=== PATIENT | male | born 1970 | race Caucasian/White ===

== ENCOUNTER 2020-02-03 20:06 | Inpatient (IN) | payer MEDICAID, SELFPAY ==
[2020-02-03 20:09] VITALS: BP 165/126; PULSE 116; RESP 22; TEMP 37.3; O2SAT 96; BMI 22.8
--- NOTE | 2020-02-03 20:52 | EKG12_ITS ---
Test Reason : SEIZURE Blood Pressure : / mmHG Vent. Rate : 107 BPM Atrial Rate : 107 BPM P-R Int : 180 ms QRS Dur : 102 ms QT Int : 344 ms P-R-T Axes : 029 058 057 degrees QTc Int : 459 ms Sinus tachycardia Nonspecific ST abnormality Abnormal ECG Confirmed by KIRSTEN MCGOVERN, CECE ([id number]), book or script editor SHERI MYERS ([id number]) on 02/05/2020 1:04:23 PM Referred By: OLVIN Confirmed By:CECE CURTIS MD
--- NOTE | 2020-02-03 20:52 | CT_ITS ---
STUDY: CT BRAIN WITHOUT CONTRAST REASON FOR EXAM: Male, 49 years old. CHANGE IN MENTAL STATUS. Hx of seizures, HTN and alcohol abuse RADIATION DOSAGE (If Supplied By Facility): CTDIvol = ( 44.99 ) mGy, DLP = ( 846.73 ) mGycm TECHNIQUE: Transaxial CT imaging of the brain was performed without administration of intravenous contrast material. Individualized dose optimization techniques were used for this CT. COMPARISON: No relevant priors. FINDINGS: Normal soft tissue structures. Normal calvarium. Normal size ventricles and extra-axial spaces for the patient''s age. Normal white matter tracts of the cerebral hemispheres. Normal basal ganglia and thalami. Normal brainstem. Normal cerebellum. There is no intracranial hemorrhage. There are no findings of an acute ischemic infarction. Normal visualized paranasal sinuses. CT/Brain/Head without Contrast IMPRESSION: Normal unenhanced CT scan of the brain. Electronically Signed: Shruti Pozo MD at 21:33 EDT Tel , Service support ,
[2020-02-03 21:04] LABS: Absolute Lymphocyte Count 1.22 X10^3/uL (0.83-4.51); Absolute Neutrophil Count 4.1 X10^3/uL (2.0-7.7); Basophil# 0.04 X10^3/uL; Basophil% 0.7 % (0-1); Eosinophil# 0.03 X10^3/uL; Eosinophils% 0.5 % (0-5); Hematocrit 47.3 % (40-54); Hemoglobin 16.1 g/dL (13.0-16.5); Lymphocyte # 1.22 X10^3/ul (4.0); Lymphocyte % 19.9 % (19-41); Mean Corpuscular Hgb 32.5 pg (27.0-32.0); Mean Corpuscular Volume 95.6 fL (80-94); Mean Platelet Vol. 10.4 fl (6.2-12.0); Monocyte# 0.67 X10^3/uL; Monocyte% 10.9 % (0-10); NRBC Flagged by Analyzer 0 % (0-5); Neutrophil # 4.13 X10^3/uL (2.7-7.7); Neutrophil % 67.3 % (47-70); POSITIVE COUNT YES; Platelet Count 90 K/mm3 (150-450); RBC Distribution Width SD 42.2 fl (35.1-43.9); Red Blood Count 4.95 M/mm3 (4.6-6.2); White Blood Count 6.1 K/mm3 (4.4-11.0)
[2020-02-03 21:09] LABS: Differential Indicated SCAN CRITERIA MET
[2020-02-03 21:16] LABS: Alcohol, Blood (Medical)-Serum < 3.0 mg/dL
--- NOTE | 2020-02-03 21:20 | RAD_ITS ---
STUDY: X-RAY CHEST REASON FOR EXAM: Male, 49 years old. HX OF SEIZURES, HTN, ALCOHOLIC. TECHNIQUE: Single AP portable view of the chest. COMPARISON: None. FINDINGS: The lungs are clear and expanded. There is no demonstrated pleural abnormality. Normal size heart. Normal mediastinum and nicolette. Normal visualized pulmonary arteries. Normal visualized aortic arch and descending thoracic aorta. Normal visualized thoracic spine. Normal visualized ribs, clavicles, and shoulders. There is no demonstrated abnormality of the visualized soft tissue structures of the upper abdomen. RAD/Chest 1 View (Portable) IMPRESSION: Normal x-ray examination of the chest. Electronically Signed: Shruti Pozo MD at 22:01 EDT Tel , Service support ,
[2020-02-03 21:22] LABS: ALB/GLOB Ratio 1.2 RATIO (0.9-2.4); AST(SGOT) 146 U/L (15-37); Alanine Aminotransfer ALT/SGPT 88 U/L (16-61); Alkaline Phosphatase 112 U/L (45-117); Anion Gap 20 (5-15); BUN 4 mg/dL (7-18); BUN/Creat Ratio 3.8 RATIO (10-20); Calcium,Total 9.6 mg/dL (8.5-10.1); Chloride 100 mmol/L (98-107); Creatinine, Serum 1.06 mg/dL (0.70-1.30); EST Glomerular Filtration Rate 79 mL/min (>60); Est Glom Filt Rate - Afr Amer 96 mL/min (>60); Estimated Creatinine Clearance 80.55 ml/min; Globulin 4.3 g/dL (2.2-4.2); Glucose 152 mg/dL (74-106); Potassium 3.2 mmol/L (3.5-5.1); Protein, Total 9.3 g/dL (6.4-8.2); Sodium Level 135 mmol/L (136-145)
[2020-02-03 21:46] LABS: Platelet Estimate MOD DEC (ADEQ); Red Cell Morphology NORM C+C NORMAL (NORM C&C)
[2020-02-03 21:59] VITALS: BP 154/107; PULSE 105; RESP 15; O2SAT 95
--- NOTE | 2020-02-03 23:24 | ED.DCSUM_ITS ---
- ER Visit Summary Date of Service: 02/03/20 Chief Complaint: Seizure History of Present Illness: The patient is a 49 M who had a brief loss of consciousness at work. He was shaking. He was feeling dizzy and had blurry vision prior to the event. He said this happened once before, but he was never sure what caused this. His significant other is with him and does remark that he stopped drinking alcohol 2 days ago. He was drinking a liter per day. No other drug use. No other complaints or injuries. Physical Examination: Afebrile and vital signs unremarkable except for hypertension and a heart rate of 105. Head and neck atraumatic. Heart regular. Lungs clear. Abdomen soft. Skin appears normal. Test Results: EKG shows sinus rhythm at a rate of [address] changes. Platelets 90, sodium 135, potassium 3.2, CO2 15, anion gap 20, glucose 152, BUN 4, total bilirubin 3.5, ALT 88, AST 146, troponin normal. CT brain and chest x-ray unremarkable. Emergency Department Course and Treatment: Patient had seizure precautions. Will treat with Ativan. He was placed on a monitor. I suspect his loss of consciousness may be from a withdrawal seizure. Work-up as above. He is interested in detox from alcohol and so I contacted the hospitalist for admission. Treatment Plan: As above Disposition: Admission Impression: Loss of consciousness, alcohol abuse, thrombocytopenia, hypokalemia, hyperbilirubinemia, transaminitis This note was generated with [employer] dictation software. It may contain incorrect words, spelling, and punctuation that were not noted in review of the chart prior to signing ED Disposition - Plan for ED Patient: Referrals: Care Physician,No Primary [Primary Care Provider] -
[2020-02-03 23:27] LABS: Amphetamine Urine VISTA NEGATIVE (<1000 ng/mL); Barbiturate Urine VISTA NEGATIVE (< 200 ng/mL); Benzodiazepine Urine VISTA NEGATIVE (< 200 ng/mL); Cocaine Urine VISTA NEGATIVE (< 300 ng/mL); Ecstacy Urine VISTA NEGATIVE (< 500 ng/mL); Methadone Urine VISTA NEGATIVE (< 300 ng/mL); PCP Urine VISTA NEGATIVE (< 25 ng/mL); THC Urine VISTA NEGATIVE (< 50 ng/mL); Vista UDS pH Range 5
--- NOTE | 2020-02-03 23:33 | PCM.HP.STD ---
Problem List (1) Alcohol withdrawal Status: Acute History of Present Illness Date of Admission: 02/03/20 Chief Complaint: alcohol withdrawal The patient is a 49 year old male patient with a history of chronic alcohol abuse presents to the emergency room by squad after experiencing a seizure while shopping at a local store. The seizure was witnessed and was described as tonic-clonic lasting 30 to 45 seconds. He was monitored during the seizure by bystanders and was uninjured from the experience. The patient admits to stopping drinking 2 days ago and admits to chronic heavy alcohol abuse. AST to ALT ratio is nearly 2-1 and bilirubin is markedly elevated 3.5 otherwise labs are unremarkable. Patient denies any abdominal pain, nausea and/or vomiting. He also denies chest pain or shortness of breath and/or fevers or chills. Patient is requesting admission for detoxification of alcohol and a plan for success upon discharge from the hospital as he had tried this once before and was unsuccessful due to lack of post hospital plan. Past Medical History Allergies No Known Allergies Allergy (Verified 02/03/20 20:15) Home Medications: Ambulatory Orders Medication Instructions Recorded NK 02/03/20 Smoking Status: Never smoker - *Family History Maternal History Items: No pertinent history Review of Systems Constitutional: Denies: Chills, Fever, Weight Change HEENT: Denies: Head Aches, Sinus Congestion, Sinus Drainage Cardiovascular: Denies: Chest Pain, Palpitations Respiratory: Denies: Cough, Shortness of breath at rest, Sputum production Gastrointestinal: Denies: Abdominal Pain, Nausea, Vomiting Genitourinary: Denies: Dysuria Musculoskeletal: Denies: Joint Pain, Joint Tenderness Skin: Denies: Rash, Wounds Neurological: Reports: Seizures. Denies: Focal weakness, Numbness, Tingling Psychiatric: Reports: Anxiety. Denies: Depression, Homicidal Ideations, Suicidal Ideations Hematologic/ Lymphatic: Denies: Easy Bruising, Easy Bleeding VTE Information - Inpt Only VTE Present on Admission: No VTE Mechan Device Prophylaxis: None VTE Pharm Prophylaxis ordered?: No Patient Problems: Active and Suspected Problems Alcohol withdrawal (Acute) - Physical Exam Vitals/I&O's: Vital Signs Temp Pulse Resp BP Pulse Ox 99.2 F H 105 H 15 154/107 H 95 02/03/20 20:09 02/03/20 21:59 02/03/20 21:59 02/03/20 21:59 02/03/20 21:59 Oxygen Delivery Method Room Air Weight: 145 lb 11.609 oz Body Mass Index (BMI) 22.8 General: Alert, Oriented x3, Cooperative HEENT: Atraumatic, PERRLA, EOMI, Normocephalic Neck: Supple Lungs: Clear to auscultation, Normal air movement, No rhonchi, No wheeze, No rales Cardiovascular: Regular rate, Normal S1, Normal S2, No murmurs Abdomen: Bowel Sounds Present, Soft, Non Tender Extremities: No edema Skin: No rashes, No breakdown Musculoskeletal: No Tenderness to Palpation of Joints or Extremities Neurological: Neuro grossly intact Psych/Mental Status: Normal Affect, Appropriate Laboratory Results 02/03/20 20:18: WBC 6.1, RBC 4.95, Hgb 16.1, Hct 47.3, MCV 95.6 H, MCH 32.5 H, MCHC 34.0, RDW Std Deviation 42.2, RDW Coeff of Jag 12.0, Plt Count 90 L, MPV 10.4, Immature Gran % (Auto) 0.700, Neut % (Auto) 67.3, Lymph % (Auto) 19.9, [place] % (Auto) 10.9 H, Eos % (Auto) 0.5, Baso % (Auto) 0.7, Absolute Neuts (auto) 4.1, Absolute Lymphs (auto) 1.22, Nucleated RBC % 0, Platelet Estimate MOD DEC, RBC Morphology NORM C+C 02/03/20 20:18: Sodium 135 L, Potassium 3.2 L, Chloride 100, Carbon Dioxide 15.0 L, Anion Gap 20 H, BUN 4 L, Creatinine 1.06, Estim Creat Clear Calc 80.55, Est GFR (MDRD) Af Amer 96, Est GFR (MDRD) Non-Af 79, BUN/Creatinine Ratio 3.8 L, Glucose 152 H, Calcium 9.6, Total Bilirubin 3.50 H, AST 146 H, ALT 88 H, Alkaline Phosphatase 112, Troponin I < 0.015, Total Protein 9.3 H, Albumin 5.0, Globulin 4.3 H, Albumin/Globulin Ratio 1.2 02/03/20 20:18: Ethyl Alcohol < 3.0 02/03/20 22:25: Urine Opiates Screen NEGATIVE, Urine Methadone Screen NEGATIVE, Ur Barbiturates Screen NEGATIVE, Ur Phencyclidine Scrn NEGATIVE, Ur Amphetamines Screen NEGATIVE, U Methamphetamin-MDMA NEGATIVE, U Benzodiazepines Scrn NEGATIVE, Urine Cocaine Screen NEGATIVE, U Cannabinoids Screen NEGATIVE, Ur Drug Screen Comment Assessment/Plan All Active Problems Alcohol withdrawal (Acute) Plan 1. Alcohol abuse/withdrawal?Place patient on general medical floor initiate CIWA protocol, consult assistant case manager for discharge planning to [facility] and other alcohol addiction support services. 2. DVT prophylaxis?patient is ambulatory but will be using seizure precautions over the next 24 hours Inpatient E&M: 68806 Init Hosp L3
[2020-02-03 23:35] VITALS: BP 169/109; PULSE 109; RESP 18; TEMP 37.8; O2SAT 95
[2020-02-03] MEDS: LORazepam 2 MG/ML Syringe 1 MG IV (23:40)
[2020-02-04] VITALS (7 sets, daily range): BP systolic 151–170; BP diastolic 91–118; PULSE 86–111; RESP 16–18; TEMP 37.1–38.3; O2SAT 97–100; BMI 23.3; BMI 23.4
[2020-02-04 07:22] LABS: AST(SGOT) 103 U/L (15-37); Alanine Aminotransfer ALT/SGPT 73 U/L (16-61); Albumin, Serum 4.2 g/dL (3.2-5.0); Alkaline Phosphatase 96 U/L (45-117); Anion Gap 10 (5-15); BUN 4 mg/dL (7-18); BUN/Creat Ratio 6.6 RATIO (10-20); Calcium,Total 9.1 mg/dL (8.5-10.1); Chloride 97 mmol/L (98-107); EST Glomerular Filtration Rate 152 mL/min (>60); Est Glom Filt Rate - Afr Amer 184 mL/min (>60); Globulin 4.2 g/dL (2.2-4.2); Glucose 105 mg/dL (74-106); Potassium 3.3 mmol/L (3.5-5.1); Protein, Total 8.4 g/dL (6.4-8.2); Sodium Level 131 mmol/L (136-145)
--- NOTE | 2020-02-04 07:41 | PN_ITS ---
Patient Problems: Active and Suspected Problems Alcohol withdrawal (Acute) Reason for Visit: Seizure, acute alcohol withdrawal Subjective: Patient is a 49-year-old gentleman with history of chronic alcohol use who had apparently stopped drinking 2 days prior to admission had a seizure was at work. Patient was brought to the emergency department admitted to regular nursing floor for further management Objective: GENERAL: cooperative HEENT: Atraumatic; EYES; Anicteric, Normal Conjunctiva NECK; supple, normal thyroid, RESPIRATORY: Diminished to auscultation CARDIOVASCULAR: Regular S1 S2, GI: soft, normoactive bowel sounds, : No Renal angle tenderness; EXTREMITIES: No edema, no clubbing, MUSCULOSKELETAL: no muscle waisting NEURO: Awake; no lateralizing signs. SKIN: No Rash PSYCH; Flat affect Vitals/I&O's: Vital Signs Temp Pulse Resp BP Pulse Ox 99.1 F 96 16 155/91 H 97 02/04/20 04:47 02/04/20 04:47 02/04/20 04:47 02/04/20 04:47 02/04/20 04:47 Oxygen Delivery Method Room Air Weight: 67.7 kg Body Mass Index (BMI) 23.3 Laboratory Results 02/03/20 20:18: WBC 6.1, RBC 4.95, Hgb 16.1, Hct 47.3, MCV 95.6 H, MCH 32.5 H, MCHC 34.0, RDW Std Deviation 42.2, RDW Coeff of Jag 12.0, Plt Count 90 L, MPV 10.4, Immature Gran % (Auto) 0.700, Neut % (Auto) 67.3, Lymph % (Auto) 19.9, [place] % (Auto) 10.9 H, Eos % (Auto) 0.5, Baso % (Auto) 0.7, Absolute Neuts (auto) 4.1, Absolute Lymphs (auto) 1.22, Nucleated RBC % 0, Platelet Estimate MOD DEC, RBC Morphology NORM C+C 02/03/20 20:18: Sodium 135 L, Potassium 3.2 L, Chloride 100, Carbon Dioxide 15.0 L, Anion Gap 20 H, BUN 4 L, Creatinine 1.06, Estim Creat Clear Calc 80.55, Est GFR (MDRD) Af Amer 96, Est GFR (MDRD) Non-Af 79, BUN/Creatinine Ratio 3.8 L, Glucose 152 H, Calcium 9.6, Total Bilirubin 3.50 H, AST 146 H, ALT 88 H, Alkaline Phosphatase 112, Troponin I < 0.015, Total Protein 9.3 H, Albumin 5.0, Globulin 4.3 H, Albumin/Globulin Ratio 1.2 02/03/20 20:18: Ethyl Alcohol < 3.0 02/03/20 22:25: Urine Opiates Screen NEGATIVE, Urine Methadone Screen NEGATIVE, Ur Barbiturates Screen NEGATIVE, Ur Phencyclidine Scrn NEGATIVE, Ur Amphetamines Screen NEGATIVE, U Methamphetamin-MDMA NEGATIVE, U Benzodiazepines Scrn NEGATIVE, Urine Cocaine Screen NEGATIVE, U Cannabinoids Screen NEGATIVE, Ur Drug Screen Comment 02/04/20 06:36: Sodium 131 L, Potassium 3.3 L, Chloride 97 L, Carbon Dioxide 24.0, Anion Gap 10, BUN 4 L, Creatinine 0.60 L, Estim Creat Clear Calc 142.30, Est GFR (MDRD) Af Amer 184, Est GFR (MDRD) Non-Af 152, BUN/Creatinine Ratio 6.6 L, Glucose 105, Calcium 9.1, Total Bilirubin 3.80 H, AST 103 H, ALT 73 H, Alkaline Phosphatase 96, Total Protein 8.4 H, Albumin 4.2, Globulin 4.2, Albumin/Globulin Ratio 1.0 Current Medications Dicyclomine HCl (Bentyl) 20 mg PO Q6H PRN PRN PRN Reason: abdominal discomfort Folic Acid (Folic Acid) 1 mg PO DAILY@0800 JÚNIOR Gabapentin (Neurontin) 300 mg PO Q8H PRN PRN PRN Reason: moderate to severe anxiety Hydroxyzine Pamoate (Vistaril Pamoate Capsule) 50 mg PO Q4H PRN PRN PRN Reason: mild anxiety Loperamide HCl (Imodium) 2 mg PO Q4H PRN PRN PRN Reason: LOOSE STOOLS Lorazepam (Ativan) 2 mg PO Q2H PRN PRN; Protocol PRN Reason: CIWA score > 8 but <15 Lorazepam (Ativan) 2 mg PO UD PRN; Protocol PRN Reason: CIWA score >/=15. Lorazepam (Ativan) 2 mg IV Q2H PRN PRN; Protocol PRN Reason: CIWA score > 8 but <15 Lorazepam (Ativan) 2 mg IV UD PRN; Protocol PRN Reason: CIWA score >/=15. Ondansetron HCl (Zofran) 8 mg PO Q8H PRN PRN PRN Reason: NAUSEA Sodium Chloride () 10 - 40 ml IV UD PRN PRN Reason: SALINE FLUSH Thiamine HCl (Vitamin B1) 100 mg PO DAILYCM JÚNIOR Trazodone HCl (Desyrel) 100 mg PO QHS PRN PRN Reason: INSOMNIA STROKE Vital Signs/Narrative: Vital Signs Temp Pulse Resp BP Pulse Ox 02/04/20 04:47 99.1 F 96 16 155/91 H 97 Medical Necessity - Tobacco Use Smoking Status: Never smoker Assessment/Plan All Active Problems Alcohol withdrawal (Acute) Patient is a 49-year-old gentleman with history of chronic alcohol use who had apparently stopped drinking 2 days prior to admission had a seizure was at work. Patient was brought to the emergency department admitted to regular nursing floor for further management 1. Acute alcohol withdrawal ?Patient has been admitted to regular nursing floor for medical stabilization using phenobarb patient was counseled on cessation 2. New onset seizure ?Suspected to be secondary to alcohol withdrawal seizure patient has been admitted to a nursing floor as stated above. Seizure precautions instituted in addition ordered EEG MRI of the brain with contrast and consultation placed to SOC for EEG interpretation 3. Hypokalemia ?Corrected per protocol 4. Hyponatremia ?Secondary to beer put to kin monitoring daily electrolyte 5. Acute alcoholic hepatitis ?Monitoring LFTs 6. DVT prophylaxis ?Did encourage early ambulation Inpatient E&M: [id number] [facility] Hosp L3
[2020-02-04] MEDS: Thiamine Hydrochloride 100 MG Tablet PO (09:00)
[2020-02-04] MEDS: Folic Acid 1 MG Tablet PO (09:00)
--- NOTE | 2020-02-04 09:02 | CASEMGMT ---
Social Work Note Pt is RAMP pt. SW placed a call to Sujatha at [facility] and left message that pt will need to be seen. Tania Smalls TRANSPORTATION AIDE, MED PEDS
--- NOTE | 2020-02-04 11:09 | TELEMED_ITS ---
SOC Telemed has confirmed receipt of a request for visit. This document confirms receipt of the order initiating the consult. To find the results of the consultation, please view the patient's reports for the scanned Telemed Consult.
--- NOTE | 2020-02-04 13:53 | CASEMGMT ---
Social Work Note Pt is listed as self-pay. WILFRID spoke with Tania in [facility]. WILFRID updated Tania that pt is RAMP pt, doesn't have access to phone while at [facility]. Tania states she will mail pt resources. SW in to speak with pt regarding self-pay. Pt confirms he doesn't have insurance. Pt states his girlfriend was provided financial resources in the ED. Pt agreeable to taking additional resources. WILFRID provided pt with Medicaid application, [facility] number, [facility] clinic information, [employer], [facility], and RX assistance program including prescription hope resources. Pt receptive to taking resources. Pt denied additional needs or concerns at this time. Tania Smalls DENTAL PROFESSIONAL, CLERICAL OFFICE
--- NOTE | 2020-02-04 14:00 | MRI_ITS ---
STUDY: MRI BRAIN WITH AND WITHOUT CONTRAST REASON FOR EXAM: Male, 49 years old. seizures, alcohol withdrawal TECHNIQUE: Standardized multiplanar fat and water weighted pulse sequences were obtained. IV Dotarem 13ml was administered for the contrast portion of the examination. COMPARISON: CT head 02/03/2020. FINDINGS: No intracranial mass, mass effect, or midline shift. No hemorrhage, territorial infarct, or acute ischemia. No enhancing mass or vascular lesion. Normal size of the ventricles and extra-axial spaces for the patient''s age. Normal white matter tracts of the supratentorial brain. Normal bilateral basal ganglia. Normal thalami. There is no extra-axial fluid accumulation. Normal flow voids within the major intracranial circulation suggesting patency by spin echo criteria. There is no enhancing intra-axial or extra-axial abnormality. Normal sella turcica, pituitary gland, infundibular stalk, optic chiasm and hypothalamus. Normal midbrain, marcel and medulla. Normal cerebellum. Normal basal cisterns. Normal bilateral temporal bones. Normal bilateral internal auditory canals. No demonstrated orbital abnormality, within the constraints of a routine brain study. Normal visualized paranasal sinuses. Normal calvarium and skull base. Normal visualized soft tissue structures. MRI/Brain W/WO Contrast IMPRESSION: Normal unenhanced and enhanced MRI of the brain. Electronically Signed: Shruti Pozo MD at 16:22 EDT Tel , Service support ,
--- NOTE | 2020-02-04 14:45 | NURSING ---
off unit to MRI
--- NOTE | 2020-02-04 15:32 | ADDICTION ---
THis process description writer attempted to meet with patient in his room. Patient was unavailable. This process description writer will attempt to meet with him tomorrow.
[2020-02-04] MEDS: cloNIDine HCl 0.1 MG Tablet 0.2 MG PO (20:32)
[2020-02-04] MEDS: Phenobarbital 32.4 MG Tablet 64.8 MG PO (20:32)
[2020-02-05] MEDS: Phenobarbital 32.4 MG Tablet 64.8 MG PO ×6 (00:28→19:56)
[2020-02-05] MEDS: hydrOXYzine PAM 25 MG Capsule 50 MG PO ×3 (00:33→19:56)
[2020-02-05] MEDS: LORazepam 1 MG Tablet 2 MG PO ×2 (00:33→18:57)
[2020-02-05 00:35] VITALS: BP 148/104; PULSE 97; RESP 16; TEMP 37; O2SAT 98
--- NOTE | 2020-02-05 00:56 | NURSING ---
pt states he is feeling anxious and saw an arm come up over his siderail, turned on lights, pt looked around bed. provided info about etoh withdrawal. gave reassurance. medicated. pt returned to bed. will monitor
[2020-02-05] MEDS: LORazepam 2 MG/ML Syringe IV ×6 (02:05→22:01)
[2020-02-05] MEDS: Gabapentin 300 MG Capsule PO (02:05)
[2020-02-05] MEDS: traZODone 100 MG Tablet PO (02:05)
[2020-02-05] MEDS: 0.9% Saline Lock 10 ML Syringe IV ×4 (02:05→18:06)
--- NOTE | 2020-02-05 02:16 | NURSING ---
pt restless/anxious pulled cords out of wall on his bed, removing bed linen and taking off his gown. speaking romanian at times reorientation to hospital given without success, returned to bed, medicated for withdrawal symptoms, snack given, bedexit on
--- NOTE | 2020-02-05 02:40 | NURSING ---
restless, talking to unseen persons, taking off gown, picking at air, talking in ukrainian, unable to reorient, redirect, had set off bedexit. moved to room 325 to be beside nursing station for pt safety. charge hand and service mechanic assisted. charge hand will notify of condition
--- NOTE | 2020-02-05 02:50 | NURSING ---
pt trying to pull footboard off bed, asked pt if he needed to use bathroom pt disoriented unable to answer, pointing at chair states give him his pants (no pants in chair) reorientation not effective, tried to stand but very unsteady when assisting back to bed hit at rn, stripper color in and assisted rn to get pt to sit down. 2 staff staying with pt for safety while charge entry getting meds for pt per dr springer
[2020-02-05] MEDS: Haloperidol Lactate 5 MG/ML Vial IM ×2 (02:54→22:49)
[2020-02-05] MEDS: proMETHazine 25 MG/ML Syringe IV ×2 (02:55→22:49)
--- NOTE | 2020-02-05 03:00 | NURSING ---
staff assisted pt back to bed after medication, bed exit on, factory worker sitting with pt for safety
--- NOTE | 2020-02-05 03:50 | NURSING ---
pt in bed with eyes closed, still reaching into air mumbling at times but not thrashing in bed or setting off bedexit will continue to monitor
--- NOTE | 2020-02-05 05:16 | NURSING ---
picking at things in air, kicking legs, medicated, bedexit and seizure pads on.
[2020-02-05] MEDS: Ibuprofen 600 MG Tablet PO (08:18)
[2020-02-05] MEDS: Folic Acid 1 MG Tablet PO (08:19)
[2020-02-05] MEDS: Thiamine Hydrochloride 100 MG Tablet PO (08:19)
[2020-02-05 08:38] VITALS: BP 148/104; PULSE 120; RESP 17; TEMP 36.4; O2SAT 95
[2020-02-05 09:04] LABS: Anion Gap 8 (5-15); BUN 7 mg/dL (7-18); BUN/Creat Ratio 11.5 RATIO (10-20); Calcium,Total 9.3 mg/dL (8.5-10.1); Chloride 100 mmol/L (98-107); Creatinine, Serum 0.61 mg/dL (0.70-1.30); EST Glomerular Filtration Rate 150 mL/min (>60); Est Glom Filt Rate - Afr Amer 182 mL/min (>60); Estimated Creatinine Clearance 139.97 ml/min; Glucose 97 mg/dL (74-106); Magnesium 2.1 mg/dL (1.6-2.6); Potassium 3.5 mmol/L (3.5-5.1); Sodium Level 133 mmol/L (136-145)
--- NOTE | 2020-02-05 11:18 | PCM.PN.HOSP ---
Patient Problems: Active and Suspected Problems Alcohol withdrawal (Acute) Subjective: Agitated last pm and was given 5 mg haldol, ativan and phenergan. he is now pretty sleepy but became agitated with exam. Vitals/I&O's: Vital Signs Temp Pulse Resp BP Pulse Ox 97.6 F L 120 H 17 148/104 H 95 02/05/20 08:38 02/05/20 08:38 02/05/20 08:38 02/05/20 08:38 02/05/20 08:38 Oxygen Delivery Method Room Air Weight: 67.7 kg Body Mass Index (BMI) 23.3 Intake and Output for Last 24 Hours 02/03/20 02/04/20 02/05/20 23:59 23:59 23:59 Intake Total 480 / 480 600 / 600 Balance 480 / 480 600 / 600 General: No apparent distress, Well developed, Well nourished, Confused, - - sleeping but pushes me away with exam HEENT: Atraumatic, PERRLA, Normocephalic, EAC Clear Neck: Supple, Trachea Midline Lungs: Clear to auscultation, Normal air movement, No rhonchi, No wheeze, No rales Cardiovascular: Regular rate, Regular Rhythm, Normal S1, Normal S2, No murmurs, No rub noted, No Gallop Abdomen: Bowel Sounds Present, Soft, Non Tender, Non-Distended Extremities: No clubbing, No cyanosis, No edema, Capillary Refill Less than 3 Seconds, Peripheral Pulses Normal Skin: No rashes, No breakdown Musculoskeletal: No Tenderness to Palpation of Joints or Extremities, No Muscle Wasting Psych/Mental Status: - - sleeping and arouses but not interactive Laboratory Results 02/05/20 08:35: Sodium 133 L, Potassium 3.5, Chloride 100, Carbon Dioxide 25.0, Anion Gap 8, BUN 7, Creatinine 0.61 L, Estim Creat Clear Calc 139.97, Est GFR (MDRD) Af Amer 182, Est GFR (MDRD) Non-Af 150, BUN/Creatinine Ratio 11.5, Glucose 97, Calcium 9.3, Magnesium 2.1 Current Medications Acetaminophen (Tylenol) 500 mg PO Q4H PRN PRN PRN Reason: Temp > 100.4 F Al Hydroxide/Mg Hydroxide (Mylanta Ii) 30 ml PO Q6H PRN PRN PRN Reason: dyspesia Bisacodyl (Dulcolax) 10 mg RECTAL DAILY PRN PRN Reason: Constipation Clonidine (Catapres) 0.2 mg PO BID [facility] Last Admin: 02/04/20 20:32 Dose: 0.2 mg Documented by: Dicyclomine HCl (Bentyl) 20 mg PO Q6H PRN PRN PRN Reason: abdominal discomfort Folic Acid (Folic Acid) 1 mg PO DAILY@0800 [facility] Last Admin: 02/05/20 08:19 Dose: 1 mg Documented by: Gabapentin (Neurontin) 300 mg PO Q8H PRN PRN PRN Reason: moderate to severe anxiety Last Admin: 02/05/20 02:05 Dose: 300 mg Documented by: Hydroxyzine Pamoate (Vistaril Pamoate Capsule) 50 mg PO Q4H PRN PRN PRN Reason: mild anxiety Last Admin: 02/05/20 06:57 Dose: 50 mg Documented by: Ibuprofen (Motrin) 600 mg PO Q8H PRN PRN PRN Reason: Pain Score 1-10/10 Last Admin: 02/05/20 08:18 Dose: 600 mg Documented by: Loperamide HCl (Imodium) 2 mg PO Q4H PRN PRN PRN Reason: LOOSE STOOLS Lorazepam (Ativan) 2 mg PO Q2H PRN PRN; Protocol PRN Reason: CIWA score > 8 but <15 Last Admin: 02/05/20 00:33 Dose: 2 mg Documented by: Lorazepam (Ativan) 2 mg PO UD PRN; Protocol PRN Reason: CIWA score >/=15. Lorazepam (Ativan) 2 mg IV Q2H PRN PRN; Protocol PRN Reason: CIWA score > 8 but <15 Lorazepam (Ativan) 2 mg IV UD PRN; Protocol PRN Reason: CIWA score >/=15. Last Admin: 02/05/20 06:57 Dose: 2 mg Documented by: Nicotine (Nicoderm Cq (Pbkc)) 21 mg TRANSDERM. DAILY [facility] Ondansetron HCl (Zofran) 8 mg PO Q8H PRN PRN PRN Reason: NAUSEA Phenobarbital (Phenobarbital) 97.2 mg PO Q4H [facility]; Taper Stop: 02/09/20 03:59 Last Admin: 02/05/20 08:19 Dose: 97.2 mg Documented by: Potassium Chloride (K-Dur) 40 meq PO DAILYCM JÚNIOR Stop: 02/07/20 08:01 Last Admin: 02/05/20 08:19 Dose: 40 meq Documented by: Senna (Senokot) 2 tablet PO QHS PRN PRN Reason: Constipation Sodium Chloride () 10 - 40 ml IV UD PRN PRN Reason: SALINE FLUSH Last Admin: 02/05/20 06:57 Dose: 10 ml Documented by: Thiamine HCl (Vitamin B1) 100 mg PO DAILYCM JÚNIOR Last Admin: 02/05/20 08:19 Dose: 100 mg Documented by: Trazodone HCl (Desyrel) 100 mg PO QHS PRN PRN Reason: INSOMNIA Last Admin: 02/05/20 02:05 Dose: 100 mg Documented by: STROKE Vital Signs/Narrative: Vital Signs Temp Pulse Resp BP Pulse Ox 02/05/20 08:38 97.6 F L 120 H 17 148/104 H 95 Medical Necessity - Tobacco Use Smoking Status: Never smoker Assessment/Plan All Active Problems Alcohol withdrawal (Acute) Acute EtOH Withdrawal -phenobarb order set started last night -thiamine and folate -180 to see today for overall plan -would use Precedex if continues to be an paris New Onset Seizure -suspect EtOH withdrawal -EEG neg -MRI WNL -continue seizure precautions and monitor -if recurrent seizure will need 24 hr EEG Hypokalemia -resolved -Mg is WNL Hyponatremia -improving -will trending -repeat in am Metabolic Encephalopathy -got 5 mg of Haldol last pm -IV Phenergan -IV ativan HTN -will add Metoprolol 25 mg BID Acute EtOH Hepatitis -were trending down -repeat in am Thrombocytopenia -90,000 on last CBC -repeat in am -suspect 2/2 marrow toxicity 2/2 EtOH DVT Prophylaxis -low risk -ambulation Code status -Full Inpatient E&M: 51048 Subs Hosp L2
--- NOTE | 2020-02-05 12:24 | ADDICTION ---
This typewriter mechanic attempted to meet with patient in his room. Patient did not rouse to verbal queuing. This typewriter mechanic spoke to patient's nurse and aide who reported that he has not been alert and/or oritnerd today. Nurse noted that he was given Haldol last night which is likely why he is not easily roused. This typewriter mechanic has been unable to provide assessment or d/c planning to this patient.
[2020-02-05] MEDS: cloNIDine HCl 0.1 MG Tablet 0.2 MG PO (12:54)
[2020-02-05 13:01] VITALS: BP 146/100; PULSE 99; RESP 19; O2SAT 97
[2020-02-05 19:50] VITALS: BP 125/90; PULSE 110; RESP 20; TEMP 37.2; O2SAT 97
--- NOTE | 2020-02-05 22:25 | NURSING ---
RN went into patient room to obtained vital signs. When he the patient was awakened immediately started to take off gown. After multiple attempts to re-orient patient he continued to try to get out of bed. During this time he attempted to hit staff and tear out his IV. He continues to get out of bed despite being medicated. Staff continues to attempt to re-orient patient but keeps referring to [employer] War [employer].
[2020-02-06] VITALS (7 sets, daily range): BP systolic 109–137; BP diastolic 77–100; PULSE 101–146; RESP 16–20; TEMP 36.4–37.4; O2SAT 96–98
[2020-02-06] MEDS: Phenobarbital 32.4 MG Tablet 64.8 MG PO ×2 (04:56→20:40)
[2020-02-06] MEDS: Metoprolol Tartrate 25 MG Tablet PO ×2 (05:04→20:39)
[2020-02-06] MEDS: cloNIDine HCl 0.1 MG Tablet 0.2 MG PO (05:10)
[2020-02-06 06:34] LABS: Absolute Lymphocyte Count 0.71 X10^3/uL (0.83-4.51); Absolute Neutrophil Count 7.3 X10^3/uL (2.0-7.7); Basophil# 0.02 X10^3/uL; Basophil% 0.2 % (0-1); Eosinophil# 0.09 X10^3/uL; Hematocrit 45.9 % (40-54); Hemoglobin 16.1 g/dL (13.0-16.5); Lymphocyte # 0.71 X10^3/ul (4.0); Lymphocyte % 7.9 % (19-41); Mean Corp Hgb Conc 35.1 g/dL (32-36); Mean Corpuscular Hgb 32.5 pg (27.0-32.0); Mean Corpuscular Volume 92.5 fL (80-94); Mean Platelet Vol. 10.3 fl (6.2-12.0); Monocyte# 0.85 X10^3/uL; Monocyte% 9.5 % (0-10); NRBC Flagged by Analyzer 0 % (0-5); Neutrophil # 7.28 X10^3/uL (2.7-7.7); POSITIVE COUNT YES; Platelet Count 79 K/mm3 (150-450); RBC Distribution Width CV 11.9 % (11.6-14.6); RBC Distribution Width SD 40.1 fl (35.1-43.9); Red Blood Count 4.96 M/mm3 (4.6-6.2)
[2020-02-06 06:40] LABS: Differential Indicated SCAN CRITERIA MET
[2020-02-06] MEDS: LORazepam 2 MG/ML Syringe IV (06:52)
[2020-02-06 07:04] LABS: ALB/GLOB Ratio 1.1 RATIO (0.9-2.4); AST(SGOT) 87 U/L (15-37); Alanine Aminotransfer ALT/SGPT 61 U/L (16-61); Albumin, Serum 3.9 g/dL (3.2-5.0); Alkaline Phosphatase 91 U/L (45-117); Anion Gap 13 (5-15); BUN 8 mg/dL (7-18); BUN/Creat Ratio 14.2 RATIO (10-20); Calcium,Total 8.6 mg/dL (8.5-10.1); Chloride 98 mmol/L (98-107); Creatinine, Serum 0.56 mg/dL (0.70-1.30); EST Glomerular Filtration Rate 164 mL/min (>60); Est Glom Filt Rate - Afr Amer 198 mL/min (>60); Estimated Creatinine Clearance 152.46 ml/min; Globulin 3.5 g/dL (2.2-4.2); Glucose 84 mg/dL (74-106); Potassium 3.2 mmol/L (3.5-5.1); Protein, Total 7.4 g/dL (6.4-8.2); Sodium Level 132 mmol/L (136-145)
--- NOTE | 2020-02-06 10:25 | PN_ITS ---
Patient Problems: Active and Suspected Problems Alcohol withdrawal (Acute) Subjective: Sleeping but when awoken states that he is fine and then goes back to sleep. Vitals/I&O's: Vital Signs Temp Pulse Resp BP Pulse Ox 97.5 F L 101 H 16 109/77 98 02/06/20 10:00 02/06/20 10:00 02/06/20 10:00 02/06/20 10:00 02/06/20 10:00 Oxygen Delivery Method Room Air Weight: 67.7 kg Body Mass Index (BMI) 23.3 Intake and Output for Last 24 Hours 02/04/20 02/05/20 02/06/20 23:59 23:59 23:59 Intake Total 480 / 480 870 / 870 300 / 300 Balance 480 / 480 870 / 870 300 / 300 General: No apparent distress, Well developed, Well nourished, Confused, - - sleeping but awakens more easily this am Lungs: Clear to auscultation, No rhonchi, No wheeze, No rales, Diminished - diffusely Cardiovascular: Regular Rhythm, Normal S1, Normal S2, No murmurs, No Ectopic Activity, No rub noted, No Gallop, Tachycardic - mild Abdomen: Bowel Sounds Present, Soft, Non Tender, Non-Distended Extremities: No clubbing, No cyanosis, No edema, Capillary Refill Less than 3 Seconds, Peripheral Pulses Normal Skin: No rashes Psych/Mental Status: Agitated, - - sleeping but becomes agitated when awake Laboratory Results 02/06/20 05:40: Sodium 132 L, Potassium 3.2 L, Chloride 98, Carbon Dioxide 21.0, Anion Gap 13, BUN 8, Creatinine 0.56 L, Estim Creat Clear Calc 152.46, Est GFR (MDRD) Af Amer 198, Est GFR (MDRD) Non-Af 164, BUN/Creatinine Ratio 14.2, Glucose 84, Calcium 8.6, Total Bilirubin 3.50 H, AST 87 H, ALT 61, Alkaline Phosphatase 91, Total Protein 7.4, Albumin 3.9, Globulin 3.5, Albumin/Globulin Ratio 1.1 02/06/20 05:40: WBC 9.0, RBC 4.96, Hgb 16.1, Hct 45.9, MCV 92.5, MCH 32.5 H, MCHC 35.1, RDW Std Deviation 40.1, RDW Coeff of Jag 11.9, Plt Count 79 L, MPV 10.3, Immature Gran % (Auto) 0.400, Neut % (Auto) 81.0 H, Lymph % (Auto) 7.9 L, [place] % (Auto) 9.5, Eos % (Auto) 1.0, Baso % (Auto) 0.2, Absolute Neuts (auto) 7.3, Absolute Lymphs (auto) 0.71 L, Nucleated RBC % 0 Current Medications Acetaminophen (Tylenol) 500 mg PO Q4H PRN PRN PRN Reason: Temp > 100.4 F Al Hydroxide/Mg Hydroxide (Mylanta Ii) 30 ml PO Q6H PRN PRN PRN Reason: dyspesia Bisacodyl (Dulcolax) 10 mg RECTAL DAILY PRN PRN Reason: Constipation Clonidine (Catapres) 0.2 mg PO BID [facility] Last Admin: 02/06/20 05:10 Dose: 0.2 mg Documented by: Dicyclomine HCl (Bentyl) 20 mg PO Q6H PRN PRN PRN Reason: abdominal discomfort Folic Acid (Folic Acid) 1 mg PO DAILY@0800 [facility] Last Admin: 02/06/20 10:16 Dose: Not Given Documented by: Gabapentin (Neurontin) 300 mg PO Q8H PRN PRN PRN Reason: moderate to severe anxiety Last Admin: 02/05/20 02:05 Dose: 300 mg Documented by: Hydroxyzine Pamoate (Vistaril Pamoate Capsule) 50 mg PO Q4H PRN PRN PRN Reason: mild anxiety Last Admin: 02/05/20 19:56 Dose: 50 mg Documented by: Ibuprofen (Motrin) 600 mg PO Q8H PRN PRN PRN Reason: Pain Score 1-10/10 Last Admin: 02/05/20 08:18 Dose: 600 mg Documented by: Loperamide HCl (Imodium) 2 mg PO Q4H PRN PRN PRN Reason: LOOSE STOOLS Lorazepam (Ativan) 2 mg PO Q2H PRN PRN; Protocol PRN Reason: CIWA score > 8 but <15 Last Admin: 02/05/20 00:33 Dose: 2 mg Documented by: Lorazepam (Ativan) 2 mg PO UD PRN; Protocol PRN Reason: CIWA score >/=15. Last Admin: 02/05/20 18:57 Dose: 2 mg Documented by: Lorazepam (Ativan) 2 mg IV Q2H PRN PRN; Protocol PRN Reason: CIWA score > 8 but <15 Last Admin: 02/06/20 06:52 Dose: 2 mg Documented by: Lorazepam (Ativan) 2 mg IV UD PRN; Protocol PRN Reason: CIWA score >/=15. Last Admin: 02/05/20 18:06 Dose: 2 mg Documented by: Metoprolol Tartrate (Lopressor (Beta Anika)) 25 mg PO BID [facility] Last Admin: 02/06/20 05:04 Dose: 25 mg Documented by: Nicotine (Nicoderm Cq (Pbkc)) 21 mg TRANSDERM. DAILY [facility] Last Admin: 02/06/20 10:19 Dose: 21 mg Documented by: Ondansetron HCl (Zofran) 8 mg PO Q8H PRN PRN PRN Reason: NAUSEA Phenobarbital (Phenobarbital) 64.8 mg PO Q4H [facility]; Taper Stop: 02/09/20 03:59 Last Admin: 02/06/20 10:16 Dose: Not Given Documented by: Potassium Chloride (K-Dur) 40 meq PO DAILYCM [facility] Stop: 02/07/20 08:01 Last Admin: 02/05/20 08:19 Dose: 40 meq Documented by: Senna (Senokot) 2 tablet PO QHS PRN PRN Reason: Constipation Sodium Chloride () 10 - 40 ml IV UD PRN PRN Reason: SALINE FLUSH Last Admin: 02/05/20 18:06 Dose: 10 ml Documented by: [facility] ([facility]itamin B[facility]) [facility] Last Admin: 02/06/20 10:17 Dose: Not Given Documented by: Trazodone HCl (Desyrel) 100 mg PO QHS PRN PRN Reason: INSOMNIA Last Admin: 02/05/20 02:05 Dose: 100 mg Documented by: STROKE Vital Signs/Narrative: Vital Signs Temp Pulse Resp BP Pulse Ox 02/06/20 10:00 97.5 F L 101 H 16 109/77 98 Medical Necessity - Tobacco Use Smoking Status: Never smoker Assessment/Plan All Active Problems Alcohol withdrawal (Acute) Acute EtOH Withdrawal -phenobarb order set -thiamine and folate -180 to see, once able to interact appropriately, for overall plan New Onset Seizure -suspect EtOH withdrawal -no further issues -EEG neg -MRI WNL -continue seizure precautions and monitor -if recurrent seizure will need 24 hr EEG Hypokalemia -down again today -will give 60 IV since MS waxes and wanes -Mag was WNL Hyponatremia -stable 132 today -repeat in am Metabolic Encephalopathy -seems to be slowly improving HTN -continue Metoprolol 25 mg BID Acute EtOH Hepatitis -resolving Thrombocytopenia -trending down some (79,000) -suspect 2/2 marrow toxicity 2/2 EtOH -repeat in am DVT Prophylaxis -low risk -ambulation Code status -Full Inpatient E&M: 49817 Subs Hosp L2
[2020-02-06] MEDS: 0.9% Saline Lock 10 ML Syringe IV (12:20)
[2020-02-06] MEDS: Potassium Chloride 10mEq/100mL 10 MEQ/100 ML IV.SOLN. 100 MEQ IV BOLUS ×4 (12:29→15:45)
[2020-02-07] MEDS: Phenobarbital 32.4 MG Tablet 64.8 MG PO ×4 (00:40→16:00)
[2020-02-07 01:53] VITALS: BP 123/92; PULSE 111; RESP 16; TEMP 37.6; O2SAT 100
[2020-02-07 06:07] LABS: Absolute Lymphocyte Count 0.92 X10^3/uL (0.83-4.51); Basophil# 0.03 X10^3/uL; Basophil% 0.5 % (0-1); Eosinophil# 0.21 X10^3/uL; Eosinophils% 3.4 % (0-5); Hematocrit 43.8 % (40-54); Hemoglobin 15.3 g/dL (13.0-16.5); Lymphocyte # 0.92 X10^3/ul (4.0); Lymphocyte % 15.1 % (19-41); Mean Corp Hgb Conc 34.9 g/dL (32-36); Mean Corpuscular Hgb 32.6 pg (27.0-32.0); Mean Corpuscular Volume 93.4 fL (80-94); Mean Platelet Vol. 10.3 fl (6.2-12.0); Monocyte# 0.93 X10^3/uL; Monocyte% 15.2 % (0-10); NRBC Flagged by Analyzer 0 % (0-5); Neutrophil % 65.5 % (47-70); Platelet Count 103 K/mm3 (150-450); RBC Distribution Width CV 11.9 % (11.6-14.6); RBC Distribution Width SD 40.7 fl (35.1-43.9); Red Blood Count 4.69 M/mm3 (4.6-6.2); White Blood Count 6.1 K/mm3 (4.4-11.0)
[2020-02-07 06:34] LABS: Anion Gap 9 (5-15); BUN 9 mg/dL (7-18); BUN/Creat Ratio 15.3 RATIO (10-20); Calcium,Total 8.8 mg/dL (8.5-10.1); Chloride 102 mmol/L (98-107); Creatinine, Serum 0.59 mg/dL (0.70-1.30); EST Glomerular Filtration Rate 156 mL/min (>60); Est Glom Filt Rate - Afr Amer 189 mL/min (>60); Estimated Creatinine Clearance 144.71 ml/min; Glucose 71 mg/dL (74-106); Magnesium 2.1 mg/dL (1.6-2.6); Potassium 3.7 mmol/L (3.5-5.1); Sodium Level 135 mmol/L (136-145)
[2020-02-07 08:33] VITALS: BP 127/91; PULSE 105; RESP 18; TEMP 36.7; O2SAT 98
[2020-02-07 08:44] VITALS: PULSE 105
[2020-02-07 15:59] VITALS: BP 134/95; PULSE 103; RESP 18; TEMP 37.1; O2SAT 99
--- NOTE | 2020-02-07 17:11 | DCINST_ITS ---
- Discharge Diagnoses Current Active Problems: Current Active and Chronic Problems Alcohol withdrawal (Acute) You will use the following diet at home:: No restrictions Discharge Activity: Return to Normal Activity Allergies/Adverse Reactions: Allergies No Known Allergies Allergy (Verified 02/03/20 20:15) Medications to take at Discharge NK 02/03/20 Primary Care Physician: Care Physician,No Primary [Primary Care Provider] - Please follow up with your Primary Care Physician in: 1 Week Test Results: Test results from this visit will be discussed in further detail at your follow- up appointment, if applicable. Please Follow Up With: EIGHTY,ONE When: As scheduled Proposed Discharge Date: 02/07/20
--- NOTE | 2020-02-08 06:56 | DS.PCM_ITS ---
Discharge Date and Diagnosis Date of Admission: 02/03/20 Date of Discharge: 02/07/20 Hospital Course and Treatment Imaging Results: STUDY: MRI BRAIN WITH AND WITHOUT CONTRAST REASON FOR EXAM: Male, 49 years old. seizures, alcohol withdrawal TECHNIQUE: Standardized multiplanar fat and water weighted pulse sequences were obtained. IV Dotarem 13ml was administered for the contrast portion of the examination. COMPARISON: CT head 02/03/2020. FINDINGS: No intracranial mass, mass effect, or midline shift. No hemorrhage, territorial infarct, or acute ischemia. No enhancing mass or vascular lesion. Normal size of the ventricles and extra-axial spaces for the patient''s age. Normal white matter tracts of the supratentorial brain. Normal bilateral basal ganglia. Normal thalami. There is no extra-axial fluid accumulation. Normal flow voids within the major intracranial circulation suggesting patency by spin echo criteria. There is no enhancing intra-axial or extra-axial abnormality. Normal sella turcica, pituitary gland, infundibular stalk, optic chiasm and hypothalamus. Normal midbrain, marcel and medulla. Normal cerebellum. Normal basal cisterns. Normal bilateral temporal bones. Normal bilateral internal auditory canals. No demonstrated orbital abnormality, within the constraints of a routine brain study. Normal visualized paranasal sinuses. Normal calvarium and skull base. Normal visualized soft tissue structures. MRI/Brain W/WO Contrast IMPRESSION: Normal unenhanced and enhanced MRI of the brain. EEG- Unremarkable drowsing and sleeping EEG ADM Operations: None Procedures: None Summary of Care Provided: Mr Collado is a 49 year old male patient with a history of chronic alcohol abuse who presented to the ED by squad after experiencing a seizure while shopping at a local store. The seizure was witnessed and was described as tonic-clonic lasting 30 to 45 seconds. He was monitored during the seizure by bystanders and was uninjured from the experience. The patient admitted in the ED to stopping drinking 2 days ago and admits to chronic heavy alcohol abuse. AST to ALT ratio was nearly 2-1 and bilirubin was markedly elevated at 3.5 otherwise labs were unremarkable. Patient requested admission for detoxification of alcohol and a plan for success upon discharge from the hospital as he had tried this once before and was unsuccessful due to lack of post hospital plan. He was admitted and placed on a Phenobarbital taper, thiamine, folate and supportive care. He was initially very agitated and required supplemental Haldol and then was somnolent following. His agitation and withdrawal started to subside on 02/05 and by 02/06 he was able to meet with 180/ADM and set up f/u for outpt treatment. He has f/u at 180 on Feb 10 at 8 am. - Physical Exam Vitals/I&O's: Vital Signs Temp Pulse Resp BP Pulse Ox 98.7 F 103 H 18 134/95 H 99 02/07/20 15:59 02/07/20 15:59 02/07/20 15:59 02/07/20 15:59 02/07/20 15:59 Oxygen Delivery Method Room Air Weight: 67.7 kg Body Mass Index (BMI) 23.3 Intake and Output for Last 24 Hours 02/06/20 02/07/20 02/08/20 23:59 23:59 23:59 Intake Total 700 / 700 830 / 830 Balance 700 / 700 830 / 830 Discharge Activity: Return to Normal Activity Home Medications: Medications to take at Discharge NK 02/03/20 Primary Care Physician: Care Physician,No Primary [Primary Care Provider] - Please follow up with your Primary Care Physician in: 1 Week Please Follow Up With: EIGHTY,ONE When: As scheduled Medical Necessity - Tobacco Use Smoking Status: Never smoker Meaningful Use Info Meaningful Use Diagnoses (Choose all that apply): None applicable Inpatient E&M: 03682 Disch Hosp
== END 2020-02-07 18:07 | disposition home or self-care (01) | DRG 896 ==
LOC: ED 21:01 → MS3 23:56
PROVIDERS: Internal Medicine; Admitting Provider Family Medicine; Emergency Provider Emergency Medicine; Visit Provider Internal Medicine
DX: F10.239 Alcohol dependence with withdrawal, unspecified (principal); G93.41 Metabolic encephalopathy; E87.1 Hypo-osmolality and hyponatremia; R56.9 Unspecified convulsions; E87.6 Hypokalemia; D69.6 Thrombocytopenia, unspecified; K70.10 Alcoholic hepatitis without ascites; I10 Essential (primary) hypertension
CPT/HCPCS: 36415; 70450; 70553; 71045; 80048; 80053; 80307; 80320; 83735; 84484; 85025; 93005; 95819; 99285; A9575; J7040; A4216; G0480

== ENCOUNTER → 2020-05-12 17:00 | Outpatient (CLI) | payer MEDICAID, SELFPAY ==
[2020-02-04 00:52] VITALS: BMI 23.3
[2020-05-12 17:48] LABS: Absolute Lymphocyte Count 1.86 X10^3/uL (0.83-4.51); Basophil# 0.03 X10^3/uL; Basophil% 0.5 % (0-1); Eosinophil# 0.34 X10^3/uL; Eosinophils% 5.7 % (0-5); Hemoglobin 14.2 g/dL (13.0-16.5); Lymphocyte # 1.86 X10^3/ul (4.0); Lymphocyte % 31.3 % (19-41); Mean Corp Hgb Conc 32.3 g/dL (32-36); Mean Corpuscular Hgb 29.2 pg (27.0-32.0); Mean Corpuscular Volume 90.5 fL (80-94); Mean Platelet Vol. 10.2 fl (6.2-12.0); Monocyte# 0.66 X10^3/uL; Monocyte% 11.1 % (0-10); NRBC Flagged by Analyzer 0 % (0-5); Neutrophil # 3.04 X10^3/uL (2.7-7.7); Neutrophil % 51.2 % (47-70); Platelet Count 205 K/mm3 (150-450); RBC Distribution Width CV 12.5 % (11.6-14.6); RBC Distribution Width SD 41.3 fl (35.1-43.9); Red Blood Count 4.86 M/mm3 (4.6-6.2); White Blood Count 5.9 K/mm3 (4.4-11.0)
[2020-05-12 18:17] LABS: ALB/GLOB Ratio 1.1 RATIO (0.9-2.4); AST(SGOT) 16 U/L (15-37); Alanine Aminotransfer ALT/SGPT 24 U/L (16-61); Albumin, Serum 4.2 g/dL (3.2-5.0); Alkaline Phosphatase 75 U/L (45-117); Anion Gap 4 (5-15); BUN 7 mg/dL (7-18); BUN/Creat Ratio 9.6 RATIO (10-20); Calcium,Total 9.2 mg/dL (8.5-10.1); Chloride 105 mmol/L (98-107); Creatinine, Serum 0.73 mg/dL (0.70-1.30); EST Glomerular Filtration Rate 121 mL/min (>60); Est Glom Filt Rate - Afr Amer 147 mL/min (>60); Globulin 3.7 g/dL (2.2-4.2); Glucose 85 mg/dL (74-106); Magnesium 1.9 mg/dL (1.6-2.6); PSA,Total - Annual Screen 0.94 ng/mL (0.00-4.00); Potassium 3.5 mmol/L (3.5-5.1); Protein, Total 7.9 g/dL (6.4-8.2); Sodium Level 138 mmol/L (136-145)
[2020-05-12 18:32] LABS: Microalbumin,Random Urine < 5.0 mg/L (NO RANGE EST.)
[2020-05-13 13:42] LABS: Bacteria 0 SEEN /hpf (None Seen); Mucous, Urine 0 SEEN /hpf (<or=2+); Red Blood Cells-Urine 0 SEEN /hpf (0-5); Squamous Epithelial Cells - UA 0 SEEN /hpf (0-5); White Blood Cells 0 SEEN /hpf (0-5)
[2020-05-13 15:05] LABS: Color, Urine Yellow (Yellow); Glucose, Dipstick Normal (Normal); Ketone-Dipstick Negative (Negative); Leukocyte Esterase-Dipstick Negative /ul (Negative); Nitrite-Dipstick Negative (Negative); Occult Blood-Urine Negative /ul (Negative); Protein-Dipstick Negative (Negative); Specific Gravity, Urine 1.005 (1.002-1.030); Urine Bilirubin Dipstick Negative (Negative); Urine Clarity Clear (Clear); Urine Urobilinogen Normal (Normal)
== END ==
PROVIDERS: Referring Provider Family Medicine; Visit Provider Family Medicine
DX: F10.239 Alcohol dependence with withdrawal, unspecified (principal); R35.0 Frequency of micturition; Z12.5 Encounter for screening for malignant neoplasm of prostate
CPT/HCPCS: 36415; 80053; 81001; 82043; 82570; 83735; 84153; 85025; G0103

== ENCOUNTER 2021-02-08 18:19 | Inpatient (IN) | payer MEDICAID, SELFPAY ==
[2021-02-08 18:21] VITALS: BP 149/103; PULSE 95; RESP 16; TEMP 36.2; O2SAT 100; BMI 24.5
--- NOTE | 2021-02-08 19:59 | EKG12_ITS ---
Test Reason : DYSRHYTHMIA Blood Pressure : / mmHG Vent. Rate : 093 BPM Atrial Rate : 093 BPM P-R Int : 144 ms QRS Dur : 110 ms QT Int : 392 ms P-R-T Axes : 031 039 068 degrees QTc Int : 487 ms Normal sinus rhythm Prolonged QT Abnormal ECG Confirmed by KIRSTEN MCGOVERN, CECE ([id number]), image editor SHERI MYERS ([id number]) on 02/10/2021 9:49:12 AM Referred By: GRZEGORZ Confirmed By:CECE CURTIS MD
--- NOTE | 2021-02-08 20:35 | EX.ED.SAOD ---
HPI History of Present Illness Chief Complaint: Substance Abuse Narrative Narrative: 50-year-old male presenting for alcohol detox. He states he drinks 1/5 of whiskey daily. He states that he drank all day today. Last drink was a couple of hours ago. Patient states he is previously detox from alcohol about a year ago. Patient states that he does have symptoms including alcohol withdrawal seizures, altered mental status, shakes. Patient denies any other drug use. He denies any other medical problems. He is currently not having any symptoms withdrawal. PFS PFS Home Medications NK 02/03/20 [History Last Taken Unknown] Allergy/AdvReac Type Severity Reaction Status Date / Time No Known Allergies Allergy Verified 02/08/21 18:23 Social History Smoking Status: Never smoker ROS ROS ED Constitutional Constitutional ED: Denies chills or fever(s) Eyes Eyes: Denies blurry vision or diplopia ENT ENT ED: Denies rhinorrhea or sore throat Cardiovascular Cardiovascular: Denies chest pain or palpitations Respiratory/Chest Respiratory/Chest: Denies cough, dyspnea or sputum Gastrointestinal Gastrointestinal: Denies abdominal pain, diarrhea, nausea or vomiting Genitourinary Genitourinary ED: Denies dysuria or urinary frequency Musculoskeletal Musculoskeletal: Denies back pain, myalgias or neck pain Integumentary Denies Abrasions or rash Neurologic Neurologic: Denies headache(s) or paresthesias Psychiatric Psychiatric: Denies anxiety or depression EXAM Physical Exam Const Vital Signs: 02/08/21 18:21 02/08/21 21:50 Temperature 97.2 F L Temperature Source Temporal Pulse Rate 95 92 Respiratory Rate 16 14 Blood Pressure 149/103 H 131/94 H Blood Pressure Mean 118 106 Pulse Ox 100 99 Oxygen Delivery Method Room Air Room Air Positive well nourished General Appearance ED: NAD; Negative for pallor HEENT Reports moist mucous membranes atraumatic Eyes PERRL and EOMs intact bilaterally Resp normal respiratory effort and clear to auscultation bilaterally Cardio regular rate and regular rhythm Neuro oriented x3 Sensorium / Orientation: alert Psych mental status grossly normal Skin General Skin Exam: Negative for jaundice or pallor Lesions: no lesions Rashes: no rashes MDM MDM MDM Narrative Medical decision making narrative: Patient presenting with desire to detox for EtOH. He states he drinks a bottle of whiskey daily. Patient last detox about a year ago. He denies drugs otherwise. Patient CBC is unremarkable. CMP shows a slight bump in his bilirubin at 1.4, AST 80, ALT 62 otherwise is unremarkable. Urine drug screen is negative. EtOH is 424. Patient has not exhibited any symptoms of withdrawal currently. Patient was discussed with hospitalist for admission. Impression: 1. EtOH abuse 2. EtOH detox Lab Data Attestation: I reviewed the patient's lab results. Labs: Laboratory Results - last 24 hr 02/08/21 02/08/21 02/08/21 20:16 20:24 20:24 WBC 4.2 L RBC 4.83 Hgb 15.1 Hct 45.5 MCV 94.2 H MCH 31.3 MCHC 33.2 RDW Std Deviation 42.7 RDW Coeff of Jag 12.3 Plt Count 110 L MPV 10.0 Immature Gran % (Auto) 0.200 Neut % (Auto) 57.2 Lymph % (Auto) 28.8 [place] % (Auto) 10.2 H Eos % (Auto) 2.9 Baso % (Auto) 0.7 Absolute Neuts (auto) 2.4 Absolute Lymphs (auto) 1.21 Nucleated RBC % 0 Sodium 143 Potassium 3.6 Chloride 107 Carbon Dioxide 29.0 Anion Gap 7 BUN 5 L Creatinine 0.65 L Estim Creat Clear Calc 125.42 Est GFR (MDRD) Af Amer 169 Est GFR (MDRD) Non-Af 140 BUN/Creatinine Ratio 7.7 L Glucose 107 H Calcium 8.5 Total Bilirubin 1.40 H AST 80 H ALT 62 H Alkaline Phosphatase 90 Total Protein 8.4 H Albumin 4.3 Globulin 4.1 Albumin/Globulin Ratio 1.0 Lipase 139 Urine Opiates Screen NEGATIVE Urine Methadone Screen NEGATIVE Ur Barbiturates Screen NEGATIVE Ur Phencyclidine Scrn NEGATIVE Ur Amphetamines Screen NEGATIVE U Methamphetamin-MDMA NEGATIVE U Benzodiazepines Scrn NEGATIVE Urine Cocaine Screen NEGATIVE U Cannabinoids Screen NEGATIVE Ur Drug Screen Comment Ethyl Alcohol 02/08/21 20:24 WBC RBC Hgb Hct MCV MCH MCHC RDW Std Deviation RDW Coeff of Jag Plt Count MPV Immature Gran % (Auto) Neut % (Auto) Lymph % (Auto) [place] % (Auto) Eos % (Auto) Baso % (Auto) Absolute Neuts (auto) Absolute Lymphs (auto) Nucleated RBC % Sodium Potassium Chloride Carbon Dioxide Anion Gap BUN Creatinine Estim Creat Clear Calc Est GFR (MDRD) Af Amer Est GFR (MDRD) Non-Af BUN/Creatinine Ratio Glucose Calcium Total Bilirubin AST ALT Alkaline Phosphatase Total Protein Albumin Globulin Albumin/Globulin Ratio Lipase Urine Opiates Screen Urine Methadone Screen Ur Barbiturates Screen Ur Phencyclidine Scrn Ur Amphetamines Screen U Methamphetamin-MDMA U Benzodiazepines Scrn Urine Cocaine Screen U Cannabinoids Screen Ur Drug Screen Comment Ethyl Alcohol 424.0 H* Discharge Plan Triage Chief Complaint: Substance Abuse ED Provider: Royal Velazquez Dx/Rx/DC Orders Prescriptions: No Action NK RF: 0 Primary Care Provider: Salazra Webb
[2021-02-08 20:37] LABS: Absolute Lymphocyte Count 1.21 X10^3/uL (0.83-4.51); Absolute Neutrophil Count 2.4 X10^3/uL (2.0-7.7); Basophil# 0.03 X10^3/uL; Basophil% 0.7 % (0-1); Eosinophil# 0.12 X10^3/uL; Eosinophils% 2.9 % (0-5); Hematocrit 45.5 % (40-54); Hemoglobin 15.1 g/dL (13.0-16.5); Lymphocyte # 1.21 X10^3/ul (0.83-4.51); Lymphocyte % 28.8 % (19-41); Mean Corp Hgb Conc 33.2 g/dL (32-36); Mean Corpuscular Hgb 31.3 pg (27.0-32.0); Mean Corpuscular Volume 94.2 fL (80-94); Monocyte# 0.43 X10^3/uL; Monocyte% 10.2 % (0-10); NRBC Flagged by Analyzer 0 % (0-5); Neutrophil % 57.2 % (47-70); Platelet Count 110 K/mm3 (150-450); RBC Distribution Width CV 12.3 % (11.6-14.6); RBC Distribution Width SD 42.7 fl (35.1-43.9); Red Blood Count 4.83 M/mm3 (4.6-6.2); White Blood Count 4.2 K/mm3 (4.4-11.0)
[2021-02-08 21:00] LABS: Amphetamine Urine VISTA NEGATIVE (<1000 ng/mL); Barbiturate Urine VISTA NEGATIVE (< 200 ng/mL); Benzodiazepine Urine VISTA NEGATIVE (< 200 ng/mL); Cocaine Urine VISTA NEGATIVE (< 300 ng/mL); Ecstacy Urine VISTA NEGATIVE (< 500 ng/mL); Methadone Urine VISTA NEGATIVE (< 300 ng/mL); PCP Urine VISTA NEGATIVE (< 25 ng/mL); THC Urine VISTA NEGATIVE (< 50 ng/mL); Vista UDS pH Range 6
[2021-02-08 21:03] LABS: AST(SGOT) 80 U/L (15-37); Alanine Aminotransfer ALT/SGPT 62 U/L (16-61); Albumin, Serum 4.3 g/dL (3.2-5.0); Alkaline Phosphatase 90 U/L (45-117); Anion Gap 7 (5-15); BUN 5 mg/dL (7-18); BUN/Creat Ratio 7.7 RATIO (10-20); Calcium,Total 8.5 mg/dL (8.5-10.1); Chloride 107 mmol/L (98-107); Creatinine, Serum 0.65 mg/dL (0.70-1.30); EST Glomerular Filtration Rate 140 mL/min (>60); Est Glom Filt Rate - Afr Amer 169 mL/min (>60); Estimated Creatinine Clearance 125.42 ml/min; Globulin 4.1 g/dL (2.2-4.2); Glucose 107 mg/dL (74-106); Lipase 139 U/L (73-393); Potassium 3.6 mmol/L (3.5-5.1); Protein, Total 8.4 g/dL (6.4-8.2); Sodium Level 143 mmol/L (136-145)
[2021-02-08 21:50] VITALS: BP 131/94; PULSE 92; RESP 14; O2SAT 99
--- NOTE | 2021-02-08 22:17 | PCM.HP.STD ---
HPI - General General Date of Admission: 02/08/21 HPI Narrative ANGIE DELANEY, is a 50 M with a significant issue of alcoholism who presents to the emergency department for help with alcohol detoxification. Patient has been drinking since 1991. He drink 1/5 of whiskey per day. On a day of presentation he drank all day. He denies any withdrawal symptoms. Report in the past he has had withdrawal seizures. [facility] Home Medications NK 02/03/20 [History Last Taken Unknown] Allergy/AdvReac Type Severity Reaction Status Date / Time No Known Allergies Allergy Verified 02/08/21 18:23 Family History (Updated 02/08/21 @ 22:[address] Fred Bello MD) Other Alcoholism no surgical history Social History Smoking Status: Never smoker ROS ROS Narrative Constitutional: Reports fatigue. Denies anorexia and change in weight Eyes: Denies blurry vision, change in eye color, change in vision, discharge from eye(s), double vision, erythema, eye pain, loss of vision or other HEENT: Denies abnormal hearing, dysphagia, ear pain, epistaxis, headache(s), hearing loss, nasal congestion, nasal discharge, post nasal drip, sinus pressure, sore throat or other Cardiovascular: Denies chest pain. Denies dyspnea on exertion, orthopnea and paroxysmal nocturnal dyspnea Respiratory/Chest: Denies cough, excessive phlegm production, shortness of breath with exertion and wheezing Gastrointestinal: Denies abdominal pain, coffee ground emesis, constipation, diarrhea, dyspepsia, hematemesis, hematochezia, loose stools, melena, nausea, vomiting or other Genitourinary: Denies burning urination, difficulty urinating, dysuria, hematuria, nocturia, urinary frequency, urinary hesitancy, urinary incontinence, urinary urgency or other Musculoskeletal: Denies arthralgias, back pain, joint pain, joint stiffness, joint swelling, myalgias, neck pain or other Neurologic: Denies abnormal gait, abnormal speech, confusion, disequilibrium, dizziness, focal weakness, headache(s), numbness, paresthesias, seizure-like activity, seizures, syncope, tingling, tremor(s) or other Psychiatric: Denies anxiety, depression, homicidal ideation, suicidal ideation or other Endocrinology: Denies change in body appearance, cold intolerance, excessive sweating, heat intolerance, polydipsia, polyuria or other Hematologic/Lymphatic: Denies anemia, easy bleeding, easy bruising, lymphadenopathy or other Integumentary: Denies ulcer on buttocks. Allergic/Immunologic: Denies rhinitis, hives, eczema, asthma or other Vital Signs Vital Signs Vital Signs: 02/08/21 18:21 02/08/21 21:50 Temperature 97.2 F L Temperature Source Temporal Pulse Rate 95 92 Respiratory Rate 16 14 Blood Pressure 149/103 H 131/94 H Blood Pressure Mean 118 106 Pulse Ox 100 99 Oxygen Delivery Method Room Air Room Air Weight Weight: 69 kg Body Mass Index (BMI) 24.5 Physical Exam Narrative Physical exam: General: Well-nourished, well-developed, no acute distress Head: Normocephalic, atraumatic, no tenderness Eyes: PERRLA, EOMI ENT, no trauma, moist mucous membranes, no rhinorrhea Neck: Nontender, full range of motion, no spinal tenderness, deformities, step-off CVS: Regular rate and rhythm Respiratory no acute distress, clear to auscultation bilaterally, chest wall nontender, no wheezing Abdomen: Soft, nontender, nondistended, normal bowel sounds, no masses : Deferred Back: Nontender, no CVA tenderness, no midline spinal tenderness, deformities, step-offs Extremities: Nontender full range of motion, no trauma Skin: Normal color, no trauma, abrasions Neuro: Alert, oriented, cranial nerves II through XII grossly intact. Psychiatry: Normal mood. Normal affect. Not depressed. Not anxious. Results Lab / Micro Data Result Diagrams: 02/08/21 20:24 02/08/21 20:24 Labs: Laboratory Results - last 24 hr 02/08/21 20:16: Urine Opiates Screen NEGATIVE, Urine Methadone Screen NEGATIVE, Ur Barbiturates Screen NEGATIVE, Ur Phencyclidine Scrn NEGATIVE, Ur Amphetamines Screen NEGATIVE, U Methamphetamin-MDMA NEGATIVE, U Benzodiazepines Scrn NEGATIVE, Urine Cocaine Screen NEGATIVE, U Cannabinoids Screen NEGATIVE, Ur Drug Screen Comment 02/08/21 20:24: WBC 4.2 L, RBC 4.83, Hgb 15.1, Hct 45.5, MCV 94.2 H, MCH 31.3, MCHC 33.2, RDW Std Deviation 42.7, RDW Coeff of Jag 12.3, Plt Count 110 L, MPV 10.0, Immature Gran % (Auto) 0.200, Neut % (Auto) 57.2, Lymph % (Auto) 28.8, [place] % (Auto) 10.2 H, Eos % (Auto) 2.9, Baso % (Auto) 0.7, Absolute Neuts (auto) 2.4, Absolute Lymphs (auto) 1.21, Nucleated RBC % 0 02/08/21 20:24: Sodium 143, Potassium 3.6, Chloride 107, Carbon Dioxide 29.0, Anion Gap 7, BUN 5 L, Creatinine 0.65 L, Estim Creat Clear Calc 125.42, Est GFR (MDRD) Af Amer 169, Est GFR (MDRD) Non-Af 140, BUN/Creatinine Ratio 7.7 L, Glucose 107 H, Calcium 8.5, Total Bilirubin 1.40 H, AST 80 H, ALT 62 H, Alkaline Phosphatase 90, Total Protein 8.4 H, Albumin 4.3, Globulin 4.1, Albumin/Globulin Ratio 1.0, Lipase 139 02/08/21 20:24: Ethyl Alcohol 424.0 H* Assessment & Plan Assessment/Plan (1) Alcoholism: PLAN: The patient is a 50 year old M with a significant history of alcoholism who presents for help with alcohol detoxification. Alcohol dependence and desire for detoxification Patient be started on phenobarbital and other adjunctive medications: Gabapentin as needed; dicyclomine as needed; Vistaril as needed; Imodium as needed; trazodone as needed; Zofran as needed; scheduled thiamine; and schedule folic acid. Monitor CIWA score Elevated liver biochemistry and hyperbilirubinemia AST 80; ALT 62; AST over ALT 1.29; total bilirubin 1.40. Review of old records show that elevated liver biochemistry and hyperbilirubinemia is chronic. Likely from alcoholism. DVT prophylaxis Low risk Encourage to ambulate Charges/Coding Visit Charges Inpatient E&M: 54887 Init Hosp L2
--- NOTE | 2021-02-08 22:21 | CM.ED ---
SOCIAL WORK Referral Source: Self-referral Reason for Consult: Substance Abuse:alcohol Patient presents to ER requesting detox from alcohol. Last drink was prior to arrival. Patient in agreement with LALI. Call to Treatment NavigatorSandra to update on referral. Bernardo to be in tomorrow to complete assessment. Plan: LALI Moseley, PANTS CUTTER, SENIOR TRIAL ATTORNEY
[2021-02-08 22:26] VITALS: BP 131/89; PULSE 88; RESP 14; TEMP 37.1; O2SAT 98
[2021-02-08 22:54] VITALS: PULSE 64; BMI 24.5
[2021-02-08 23:01] VITALS: BP 120/77; PULSE 78; RESP 20; TEMP 36.8; O2SAT 97
[2021-02-08 23:10] VITALS: BP 120/77; PULSE 78; RESP 20; TEMP 36.8; O2SAT 97
--- NOTE | 2021-02-08 23:15 | NURSING ---
Pt has had COVID vaccination but he does not know when.
--- NOTE | 2021-02-09 03:36 | PCS.PANDOC ---
PANDEMIC DOCUMENTATION INITIATED: Date: 02/08/2021 Time: 6617
[2021-02-09 04:26] VITALS: BP 112/78; PULSE 71; RESP 16; TEMP 36.5; O2SAT 97
[2021-02-09 07:54] VITALS: BP 123/90; PULSE 89; RESP 16; TEMP 36.6; O2SAT 98
[2021-02-09] MEDS: Thiamine Hydrochloride 100 MG Tablet PO (08:00)
[2021-02-09] MEDS: Folic Acid 1 MG Tablet PO (08:00)
--- NOTE | 2021-02-09 08:48 | PN.HOSP_ITS ---
Subjective Subjective Patient was seen and examined. He complains of some shakes. No nausea or vomiting Objective Data Objective Data Vital Signs: Vital Signs Temp Pulse Resp BP Pulse Ox 97.9 F 89 16 123/90 H 98 02/09/21 07:54 02/09/21 07:54 02/09/21 07:54 02/09/21 07:54 02/09/21 07:54 Oxygen Delivery Method Room Air Weight: 69 kg Body Mass Index (BMI) 24.5 Lab / Micro Data Result Diagrams: 02/08/21 20:24 02/08/21 20:24 Labs: Laboratory Results - last 24 hr 02/08/21 20:16: Urine Opiates Screen NEGATIVE, Urine Methadone Screen NEGATIVE, Ur Barbiturates Screen NEGATIVE, Ur Phencyclidine Scrn NEGATIVE, Ur Amphetamines Screen NEGATIVE, U Methamphetamin-MDMA NEGATIVE, U Benzodiazepines Scrn NEGATIVE, Urine Cocaine Screen NEGATIVE, U Cannabinoids Screen NEGATIVE, Ur Drug Screen Comment 02/08/21 20:24: WBC 4.2 L, RBC 4.83, Hgb 15.1, Hct 45.5, MCV 94.2 H, MCH 31.3, MCHC 33.2, RDW Std Deviation 42.7, RDW Coeff of Jag 12.3, Plt Count 110 L, MPV 10.0, Immature Gran % (Auto) 0.200, Neut % (Auto) 57.2, Lymph % (Auto) 28.8, [place] % (Auto) 10.2 H, Eos % (Auto) 2.9, Baso % (Auto) 0.7, Absolute Neuts (auto) 2.4, Absolute Lymphs (auto) 1.21, Nucleated RBC % 0 02/08/21 20:24: Sodium 143, Potassium 3.6, Chloride 107, Carbon Dioxide 29.0, Anion Gap 7, BUN 5 L, Creatinine 0.65 L, Estim Creat Clear Calc 125.42, Est GFR (MDRD) Af Amer 169, Est GFR (MDRD) Non-Af 140, BUN/Creatinine Ratio 7.7 L, Glucose 107 H, Calcium 8.5, Total Bilirubin 1.40 H, AST 80 H, ALT 62 H, Alkaline Phosphatase 90, Total Protein 8.4 H, Albumin 4.3, Globulin 4.1, Albumin/Globulin Ratio 1.0, Lipase 139 02/08/21 20:24: Ethyl Alcohol 424.0 H* Physical Exam Narrative Physical exam: General: Alert, Oriented x3, Cooperative, No apparent distress, Well developed HEENT: Atraumatic Oral: Moist Mucosa Neck: Supple Lungs: Clear to auscultation Cardiovascular: HS I+II, regular, no murmurs Abdomen: Bowel Sounds Present, Soft, Non Tender Extremities: No edema Skin: No rashes, No breakdown Neurological: Grossly intact Psych/Mental Status: Appropriate Assessment & Plan Assessment/Plan (1) Alcoholism: (2) Alcohol withdrawal: QUALIFIERS: Complication of substance-induced condition: uncomplicated Qualified Code(s): F10.230 - Alcohol dependence with withdrawal, uncomplicated (3) Elevated liver transaminase level: (4) Thrombocytopenia: PLAN: 1. Acute alcohol withdrawal in a patient with chronic alcohol abuse Last CIWA score was 7, continue on phenobarb taper Continue on folic acid, multivitamin, thiamine 2. Thrombocytopenia, chronic, likely secondary to chronic alcohol 3. Elevated transaminases secondary to chronic alcohol use Repeat blood work in am Charges/Coding Visit Charges Inpatient E&M: 96758 Subs Hosp L2
[2021-02-09 11:57] VITALS: BP 142/99; PULSE 89; RESP 18; TEMP 37.2; O2SAT 99
--- NOTE | 2021-02-09 12:28 | NURSING ---
talked to patients significant Sandy. Sandy states she does not have access to the dates of the covid vaccine patient recieved. states patient got them in august or september and did have 2 doses.
--- NOTE | 2021-02-09 12:47 | ADDICTION ---
TW met with PT to complete ASAM, AUDIT, DUDIT, MSE and Discharge Plan. Pt was cooperative, answered all questions asked, was alert and oriented x4 and did not present with any SI/HI. 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 Pt reported that the jobs start on Monday in [place], then he goes to [place], back to [place], and then [place]. Pt stated he has a counselor at [facility], that he can reach out to if he needs support. Pt and TW also discussed finding AA meetings at the different locations he will be traveling to. Pt declined AA but stated all of his coworkers are sober/in recovery and he can lean on both them and his significant other for support. No transportation needs noted.
[2021-02-09 16:08] VITALS: BP 157/89; PULSE 75; RESP 18; TEMP 37.2; O2SAT 99
[2021-02-09] MEDS: Phenobarbital 32.4 MG Tablet 64.8 MG PO ×2 (16:12→20:09)
[2021-02-09 19:52] VITALS: BP 153/91; PULSE 98; RESP 12; TEMP 37.4; O2SAT 100
[2021-02-09 20:00] VITALS: PULSE 80
[2021-02-10] VITALS (8 sets, daily range): BP systolic 126–154; BP diastolic 84–107; PULSE 64–83; RESP 16–18; TEMP 36.6–37.3; O2SAT 95–100
[2021-02-10] MEDS: Phenobarbital 32.4 MG Tablet 64.8 MG PO ×7 (00:17→23:36)
[2021-02-10 07:35] LABS: AST(SGOT) 54 U/L (15-37); Alanine Aminotransfer ALT/SGPT 54 U/L (16-61); Alkaline Phosphatase 84 U/L (45-117); Anion Gap 8 (5-15); BUN 8 mg/dL (7-18); Calcium,Total 9.1 mg/dL (8.5-10.1); Chloride 99 mmol/L (98-107); Creatinine, Serum 0.57 mg/dL (0.70-1.30); EST Glomerular Filtration Rate 161 mL/min (>60); Est Glom Filt Rate - Afr Amer 195 mL/min (>60); Estimated Creatinine Clearance 143.02 ml/min; Globulin 3.9 g/dL (2.2-4.2); Glucose 91 mg/dL (74-106); Potassium 3.6 mmol/L (3.5-5.1); Protein, Total 7.9 g/dL (6.4-8.2); Sodium Level 133 mmol/L (136-145)
[2021-02-10] MEDS: Thiamine Hydrochloride 100 MG Tablet PO (08:18)
[2021-02-10] MEDS: Folic Acid 1 MG Tablet PO (08:19)
--- NOTE | 2021-02-10 09:42 | PCM.PN.HOSP ---
Subjective Subjective Patient was seen and examined. No new complaint. He feels improved. Objective Data Objective Data Vital Signs: Vital Signs Temp Pulse Resp BP Pulse Ox 98.6 F 69 18 139/86 H 95 02/10/21 08:15 02/10/21 08:15 02/10/21 08:15 02/10/21 08:15 02/10/21 08:15 Oxygen Delivery Method Room Air Weight: 69 kg Body Mass Index (BMI) 24.5 Intake & Output: Intake and Output for Last 24 Hours 02/08/21 02/09/21 02/10/21 23:59 23:59 23:59 Intake Total 720 / 1320 600 / 600 Balance 720 / 1320 600 / 600 Lab / Micro Data Result Diagrams: 02/08/21 20:24 02/10/21 06:30 Labs: Laboratory Results - last 24 hr 02/10/21 06:30: Sodium 133 L, Potassium 3.6, Chloride 99, Carbon Dioxide 26.0, Anion Gap 8, BUN 8, Creatinine 0.57 L, Estim Creat Clear Calc 143.02, Est GFR (MDRD) Af Amer 195, Est GFR (MDRD) Non-Af 161, BUN/Creatinine Ratio 14.0, Glucose 91, Calcium 9.1, Total Bilirubin 2.40 H, AST 54 H, ALT 54, Alkaline Phosphatase 84, Total Protein 7.9, Albumin 4.0, Globulin 3.9, Albumin/Globulin Ratio 1.0 Physical Exam Narrative Physical exam: General: Alert, Oriented x3, Cooperative, No apparent distress, Well developed HEENT: Atraumatic Oral: Moist Mucosa Neck: Supple Lungs: Clear to auscultation Cardiovascular: HS I+II, regular, no murmurs Abdomen: Bowel Sounds Present, Soft, Non Tender Extremities: No edema Skin: No rashes, No breakdown Neurological: Grossly intact Psych/Mental Status: Appropriate Assessment & Plan Assessment/Plan (1) Alcoholism: (2) Alcohol withdrawal: QUALIFIERS: Complication of substance-induced condition: uncomplicated Qualified Code(s): F10.230 - Alcohol dependence with withdrawal, uncomplicated (3) Elevated liver transaminase level: (4) Thrombocytopenia: PLAN: 1. Acute alcohol withdrawal in a patient with chronic alcohol abuse, improving Continue on phenobarb taper Continue on folic acid, multivitamin, thiamine 2. Thrombocytopenia, chronic, likely secondary to chronic alcohol 3. Elevated transaminases secondary to chronic alcohol use Repeat blood work in am Charges/Coding Visit Charges Inpatient E&M: 38921 Subs Hosp L2
[2021-02-10] MEDS: 0.9% Saline Lock 10 ML Syringe IV (23:36)
[2021-02-11 03:41] VITALS: BP 123/83; PULSE 72; RESP 16; TEMP 36.7; O2SAT 98
[2021-02-11] MEDS: Phenobarbital 32.4 MG Tablet 64.8 MG PO ×2 (03:42→08:44)
[2021-02-11 08:40] VITALS: BP 134/90; PULSE 75; RESP 16; TEMP 36.6; O2SAT 98
[2021-02-11] MEDS: Thiamine Hydrochloride 100 MG Tablet PO (08:44)
[2021-02-11] MEDS: Folic Acid 1 MG Tablet PO (08:44)
--- NOTE | 2021-02-11 09:21 | PCM.DC ---
Discharge Instructions Diet Discharge Diet: No restrictions Activity Discharge Activity: Return to Normal Activity Follow Up Care Test Results: Test results from this visit will be discussed in further detail at your follow-up appointment, if applicable. Discharge Plan Admission Admit Date/Time: 02/08/21 22:17 Primary Reason for Your Visit: Acute alcohol withdrawal Attending Provider: Alyssia Schulz Primary Care Provider: Salazar Webb Instructions Patient Instructions: Addiction: Getting Help, Addiction Recovery Counseling Additional Instructions / Restrictions: You are strongly advised to avoid alcohol or use of any illicit drug. Avoid smoking. Follow-up with your outpatient rehab program as scheduled. Discharge Orders/Prescriptions Prescriptions: New thiamine HCl (vitamin B1) [Vitamin B-1] 100 mg Tablet 100 mg PO DAILYCM 30 Days Qty: 30 RF: 0 folic acid 1 mg Tablet 1 mg PO DAILY@0800 30 Days RF: 0 Referrals / Follow Up: Salazar Webb MD [Primary Care Provider] - Disposition Disposition (needs filled in before D/C Order can be placed): Home, Self Care
--- NOTE | 2021-02-11 09:30 | PCM.DC.SUM ---
Providers Date of Admission: 02/08/21 Date of Discharge: 02/11/21 Primary Care Physician: Dr. Salazar Webb MD Reason For Visit: DESIRE FOR DETOXIFICATION Diagnosis Discharge Diagnosis (1) Alcoholism: Status: Chronic Code(s): F10.20 - Alcohol dependence, uncomplicated (2) Alcohol withdrawal: Status: Acute Code(s): F10.239 - Alcohol dependence with withdrawal, unspecified Qualifiers: Complication of substance-induced condition: uncomplicated Qualified Code(s): F10.230 - Alcohol dependence with withdrawal, uncomplicated (3) Elevated liver transaminase level: Status: Acute Code(s): R74.01 - Elevation of levels of liver transaminase levels (4) Thrombocytopenia: Status: Acute Code(s): D69.6 - Thrombocytopenia, unspecified Medications at Discharge Home Medications folic acid 1 mg PO DAILY@0800 30 Days tab 02/11/21 thiamine HCl (vitamin B1) [Vitamin B-1] 100 mg PO DAILYCM 30 Days #30 tab 02/11/21 Hospital Course Operations None Procedures None Summary of Care Provided Minutes Spent on Discharge: 25 Hospital Course: 50-year-old male with past medical history of chronic alcohol abuse who comes in requesting for medical stabilization from alcohol withdrawal. Patient drinks about fifth of whiskey a day. He last drank on the day of admission. Patient was admitted to the [facility] and monitored on the alcohol withdrawal protocol. He was discharged in a stable state to follow-up with 180 in the outpatient. Physical Exam Narrative Physical exam: General: Alert, Oriented x3, Cooperative, No apparent distress, Well developed HEENT: Atraumatic Oral: Moist Mucosa Neck: Supple Lungs: Clear to auscultation Cardiovascular: HS I+II, regular, no murmurs Abdomen: Bowel Sounds Present, Soft, Non Tender Extremities: No edema Skin: No rashes, No breakdown Neurological: Grossly intact Psych/Mental Status: Appropriate Weight / BMI Weight Weight: 69 kg Body Mass Index (BMI) 24.5 ABG / Lab / Microbiology Data Result Diagrams: 02/08/21 20:24 02/10/21 06:30 D/C Instructions Discharge Diet: No restrictions Meaningful Use Info Meaningful Use Diagnoses (Choose all that apply): None applicable Discharge Plan Admission Admit Date/Time: 02/08/21 22:17 Primary Reason for Your Visit: Acute alcohol withdrawal Attending Provider: Alyssia Schulz Primary Care Provider: Salazar Webb Instructions Patient Instructions: Addiction: Getting Help, Addiction Recovery Counseling Additional Instructions / Restrictions: You are strongly advised to avoid alcohol or use of any illicit drug. Avoid smoking. Follow-up with your outpatient rehab program as scheduled. Discharge Orders/Prescriptions Prescriptions: New thiamine HCl (vitamin B1) [Vitamin B-1] 100 mg Tablet 100 mg PO DAILYCM 30 Days Qty: 30 RF: 0 folic acid 1 mg Tablet 1 mg PO DAILY@0800 30 Days RF: 0 Referrals / Follow Up: Salazar Webb MD [Primary Care Provider] - Disposition Disposition (needs filled in before D/C Order can be placed): Home, Self Care Charges/Coding Visit Charges Inpatient E&M: 52665 Disch Hosp
[2021-02-11 11:26] VITALS: BP 124/86; PULSE 74; RESP 16; O2SAT 98
== END 2021-02-11 12:34 | disposition home or self-care (01) | DRG 775 ==
LOC: ED 22:16 → MS3 02-09 02:42
PROVIDERS: Admitting Provider Hospitalist; Emergency Provider Student in an Organized Health Care Education/Training Program; PCP Family Medicine; Visit Provider Internal Medicine
DX: F10.229 Alcohol dependence with intoxication, unspecified (principal); F10.239 Alcohol dependence with withdrawal, unspecified; Y90.8 Blood alcohol level of 240 mg/100 ml or more; D69.6 Thrombocytopenia, unspecified; R74.02 Elevation of levels of lactic acid dehydrogenase [LDH]
CPT/HCPCS: 36415; 80053; 80307; 82077; 83690; 85025; 93005; 97802; 99284; A4216

== ENCOUNTER 2021-06-05 01:32 | Emergency (ER) | payer MEDICAID, SELFPAY ==
[2021-06-05 01:32] VITALS: BP 163/107; PULSE 99; RESP 16; TEMP 36.4; O2SAT 99; BMI 25.2
--- NOTE | 2021-06-05 01:48 | ED.VIS.LOWEX ---
HPI History of Present Illness Chief Complaint: Lower Extremity Injury Narrative Narrative: Patient presents for wound check of his right great toe. He states a few weeks ago, he dropped a piece of music equipment on it. His nail was deformed. Upon arrival to the ED, RN removed completely his right great toenail. He denies other injury. He states his tetanus is up-to-date. He has not had any fevers or chills. No drainage from his wound. He presents with his girlfriend to make sure that his right great toe is not infected. He states that he has damaged the nail in his right great toe several times in the same manner. He has had previous crush injuries to his right great toe and lost the toenail previously. [facility] Medical History Alcohol abuse Anxiety Depression Hearing loss, left Hearing loss, right Hypertension Non-smoker Seizures Home Medications biotin 1,000 mcg PO DAILY 06/05/21 [History Last Taken Unknown] Allergy/AdvReac Type Severity Reaction Status Date / Time barley AdvReac sneezing Uncoded 06/05/21 01:34 grapes AdvReac Rash Uncoded 06/05/21 01:34 Family History Other Alcoholism Social History Smoking Status: Never smoker ROS ROS ED ROS Narrative Constitutional: No fever, no chills. HEENT: No sore throat. No neck pain. No loss of vision. No rhinorrhea. Cardiovascular: No chest pain. No palpitations. No pedal edema. Respiratory: No cough, no shortness of breath. Abdominal: No abdominal pain. No nausea. No vomiting. Genitourinary: No dysuria. No hematuria. Musculoskeletal: No myalgias. No arthralgias. Right great toenail deformity. Neurologic: No headaches. No dizziness. No lightheadedness. Skin: No rash. No change in color. Psychiatric: No depression. No anxiety. EXAM Physical Exam Narrative Exam Narrative: Afebrile. Vital signs noted. HEENT: Normocephalic. Atraumatic. PERRL, EOMI. Neck soft and supple. No point tenderness or step off. Cardiovascular: Regular rate and rhythm. No murmurs, rubs, or gallops appreciated. Respiratory: No tachypnea. Lungs clear to auscultation bilaterally. Gastrointestinal: Abdomen soft, nontender, with normoactive bowel sounds. No rebound or guarding. Neurological: Awake. Alert. Nonfocal, nonlateralizing. Skin: No rash. Normal color. No pallor. Musculoskeletal: No pedal edema. Full range of motion extremities. Inspection of the right great toe reveals no tenderness or fluctuance. No erythema. There is a healing laceration to the nailbed. The nail had been removed prior to examination by the RN. Palpable dorsalis pedis pulse. Const Vital Signs: 06/05/21 01:32 Temperature 97.5 F L Temperature Source Temporal Pulse Rate 99 Respiratory Rate 16 Blood Pressure 163/107 H Blood Pressure Mean 125 Pulse Ox 99 MDM MDM MDM Narrative Medical decision making narrative: I do not see any evidence of infection currently. He was told that his toenail may not grow back at all. His wound was cleansed and dressed. He will follow up with his primary care physician or he can follow-up with a senior loan officer. His tetanus immunization is up-to-date according to him. I do not feel antibiotics are indicated. I feel he be discharged safely home with follow-up. Return instructions to the emergency department were reviewed. Disposition is discharged home in stable condition. Discharge Plan Triage Chief Complaint: Lower Extremity Injury ED Provider: Bernardo Pastrana Dx/Rx/DC Orders Clinical Impression: Contusion of great toe, Nail avulsion of toe, Encounter for post-traumatic wound check Instructions: ED Crush Injury, Foot/Toe, ED Detached Fingernail or Toenail Prescriptions: No Action biotin 1,000 mcg Tablet,Chewable 1,000 mcg PO DAILY RF: 0 Primary Care Provider: Salazar Webb Referrals: Salazar Webb MD [Primary Care Provider] - 06/10/21 Disposition Disposition: Home, Self Care
== END 2021-06-05 02:05 | disposition home or self-care (01) ==
LOC: ED 02:04
PROVIDERS: Emergency Provider Emergency Medicine; PCP Family Medicine
DX: S90.111A Contusion of right great toe without damage to nail, initial encounter (principal); S91.201A Unspecified open wound of right great toe with damage to nail, initial encounter; Z48.00 Encounter for change or removal of nonsurgical wound dressing; X58.XXXA Exposure to other specified factors, initial encounter
CPT/HCPCS: 99282

== ENCOUNTER 2022-09-16 04:40 | Emergency (ER) | payer MEDICAID, SELFPAY ==
[2022-09-16 04:41] VITALS: BP 144/96; PULSE 93; RESP 15; TEMP 36.6; O2SAT 97
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
[2022-09-16 05:42] VITALS: BP 144/96; PULSE 93; RESP 15; O2SAT 97
== END 2022-09-16 05:43 | disposition home or self-care (01) ==
PROVIDERS: Emergency Provider Emergency Medicine; PCP Family Medicine; Visit Provider Emergency Medicine
DX: S42.002A Fracture of unspecified part of left clavicle, initial encounter for closed fracture (principal); I10 Essential (primary) hypertension; V89.2XXA Person injured in unspecified motor-vehicle accident, traffic, initial encounter
CPT/HCPCS: 73000; 99282

== ENCOUNTER 2022-09-21 19:03 | Observation (INO) | payer MEDICAID, SELFPAY ==
[2022-09-19 13:33] LABS: Hematocrit 40.9 % (40-54); Hemoglobin 14.4 g/dL (13.0-16.5); Mean Corp Hgb Conc 35.2 g/dL (32-36); Mean Corpuscular Hgb 33.9 pg (27.0-32.0); Mean Corpuscular Volume 96.2 fL (80-94); Mean Platelet Vol. 9.8 fl (6.2-12.0); Platelet Count 105 K/mm3 (150-450); RBC Distribution Width CV 13.2 % (11.6-14.6); RBC Distribution Width SD 46.5 fl (35.1-43.9); Red Blood Count 4.25 M/mm3 (4.6-6.2); White Blood Count 4.7 K/mm3 (4.4-11.0)
[2022-09-19 13:39] LABS: Prothrombin Time (Protime)PT. 13.3 SECONDS (11.7-14.9)
[2022-09-19 13:40] LABS: Partial Thromboplast Time 25.2 Seconds (24.1-36.2)
[2022-09-19 14:12] LABS: AST(SGOT) 103 U/L (15-37); Alanine Aminotransfer ALT/SGPT 141 U/L (16-61); Albumin, Serum 4.1 g/dL (3.2-5.0); Alkaline Phosphatase 145 U/L (45-117); Anion Gap 4 (5-15); BUN 8 mg/dL (7-18); BUN/Creat Ratio 12.9 RATIO (10-20); Bilirubin, Direct 0.73 mg/dL (0.00-0.30); Calcium,Total 9.5 mg/dL (8.5-10.1); Chloride 100 mmol/L (98-107); Creatinine, Serum 0.62 mg/dL (0.70-1.30); EST Glomerular Filtration Rate 146 mL/min (>60); Est Glom Filt Rate - Afr Amer 176 mL/min (>60); Globulin 3.9 g/dL (2.2-4.2); Glucose 99 mg/dL (74-106); Potassium 3.3 mmol/L (3.5-5.1); Sodium Level 133 mmol/L (136-145)
[2022-09-21] VITALS (22 sets, daily range): BP systolic 111–147; BP diastolic 76–104; PULSE 77–121; RESP 14–97; TEMP 36.2–36.6; O2SAT 15–98; BMI 24.5
[2022-09-21] MEDS: Lactated Ringers 1,000 ML 15 ML IV (11:18)
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
[2022-09-21] MEDS: Cefazolin 2 GM in 0.9% Normal Saline 100 ML IV (12:36)
--- NOTE | 2022-09-21 13:48 | DCINST_ITS ---
Discharge Instructions Diet Discharge Diet: No restrictions Activity Ice area for (Minutes): 10 Lifting Restrictions: pendulums only Dressing / Incision Call your doctor if your incision/area has: Continuous Slow Oozing, Sudden Increased Bleeding, Increased Pain/ Swelling, Increased Redness, Foul Smelling Discharge and Swelling at the incision site Change Dressing in: leave in place till F/U Follow Up Care Please Follow Up With: Haris Suazo MD When: 2 days Test Results: Test results from this visit will be discussed in further detail at your follow- up appointment, if applicable. Discharge Plan Admission Attending Provider: Haris Suazo Primary Care Provider: Salazar Webb Discharge Orders/Prescriptions Prescriptions: New oxycodone-acetaminophen [Percocet] 5-325 mg tablet 1 tab PO Q4H MDD 6 PRN (Reason: pain) 5 Days Qty: 14 0RF Referrals / Follow Up: Salazar Webb MD [Primary Care Provider] - Haris Suazo MD [Med Staff - Active Staff] - Disposition Disposition (needs filled in before D/C Order can be placed): Home, Self Care
--- NOTE | 2022-09-21 13:52 | PCM.OPRPT ---
Problems Associated Problem List Diagnoses (1) Closed fracture of left clavicle: Report of Operation Date of Procedure: 09/21/22 Pre-Operative Diagnosis: Left clavicle fracture Post-Operative Diagnosis: Same Surgery/Procedure Performed:: Left clavicle open reduction internal fixation Surgeon: Haris Suazo Type of Anesthesia: Block,Regional and General Anesthesiologist: Miguelangel Richardson Estimated Blood Loss (mL): 100 Description of Procedure: Patient brought to the operating room theater. Placed supine on the beachchair positioner. trimano arm positioner to the patient's left side. General anesthesia induced 2 g IV Ancef administered prior to start of the procedure. Patient sat up at 45 degree angle. Left upper extremity prepped and draped in the usual sterile fashion allowing over 3 minutes drying time prior to draping. Preoperative timeout performed to confirm the site patient and the surgery. Began by making a standard superiorly based incision over the subcutaneous border of the clavicle. Carried dissection down through skin and subcutaneous tissue achieved meticulous hemostasis. Incised the subcutaneous fascia as well as platysma muscle down to the superior aspect of the clavicle. There is quite a bit of work 30 minutes to mobilize the fracture fragments extra work than normal standard fracture as this was about 3 weeks old now. I achieved preliminary reduction. There is moderate amount of comminution. I had to shorten the bone ends by 2 mm on either side to get good bony apposition. Fracture ends and any sort of callus was curetted to create a bleeding surface for healing. Removed small butterfly unattached fragment. I chose a standard Synthes superior precontoured locking plate. I used 4 screws fully threaded cortical screws on either end of the plate to secure the plate solidly fixed to bone. Radiographs intraoperatively are taken with no screws being long and plate being appropriately placed and sized. Wound thoroughly irrigated. Meticulous hemostasis. Fascia layer closed with running #1 Vicryl suture subtenons tissue with 2-0 Vicryl and skin with 3-0 Monocryl. Skin cleaned with wet and dry dressing followed by application of silver Mepilex water safe border dressings and a sling for the upper extremity. Patient woken up from the general anesthetic transferred off the operating room table taken to postanesthetic care unit in stable condition. All sponge needle instrument counts were correct no complications. Plan for the patient discharged home when they are comfortable according to day surgery criteria narcotic counseling given but the patient states the will take simply [id number] medications. Complications none Admit VTE Documentation VTE Present on Admission: No VTE Mechan Device Prophylaxis: SCD's Reason prophylaxis not ordered:: Treatment Not Indicated Procedures Musculoskeletal 20xxx-29xxx: Other Procedure See Report
--- NOTE | 2022-09-21 16:18 | RAD_ITS ---
INDICATION: hypoxia EXAMINATION/TECHNIQUE: X-RAY - XR Chest 1 View COMPARISON: February 03, 2020 FINDINGS: LINES/DEVICES: None. LUNGS: No consolidation, edema or effusion. There is a left retrocardiac infiltrate. No pneumothorax. MEDIASTINUM AND CARDIOVASCULAR STRUCTURES: Cardiac silhouette not enlarged. Central airways and mediastinal contour are unremarkable. BONES AND SOFT TISSUES: Degenerative vertebral changes. Status post ORIF of the left clavicle. Old left rib fractures. RAD/Chest 1 View (Portable) IMPRESSION: Left retrocardiac infiltrate. Electronically Signed: Josh Sol DO at 17:04 EDT ,
[2022-09-21] MEDS: Ipratropium/Albuterol Sulfate 3 ML AMPUL.NEB INHALATION (16:25)
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
[2022-09-21] MEDS: Ketorolac 30 MG/ML Syringe IV (20:56)
[2022-09-21] MEDS: 0.9% Saline Lock 10 ML Syringe IV (20:58)
[2022-09-21] MEDS: Acetaminophen 500 MG Tablet 1000 MG PO (22:56)
[2022-09-22] VITALS (8 sets, daily range): BP systolic 140–154; BP diastolic 97–101; PULSE 83–100; RESP 16–18; TEMP 36.5–37; O2SAT 1–98
[2022-09-22] MEDS: Ketorolac 30 MG/ML Syringe IV ×2 (02:28→08:32)
[2022-09-22] MEDS: 0.9% Saline Lock 10 ML Syringe IV (02:29)
[2022-09-22] MEDS: Acetaminophen 500 MG Tablet 1000 MG PO (05:39)
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
[2022-09-22] MEDS: Ensure Plus High Protein 120 ML LIQUID PO ×2 (08:31→12:38)
[2022-09-22] MEDS: Folic Acid 1 MG Tablet PO (08:31)
[2022-09-22] MEDS: Thiamine Hydrochloride 100 MG Tablet PO (08:32)
--- NOTE | 2022-09-22 09:50 | CASEMGMT ---
ANDREAS AYALA Assessment: Face to Face with pt for initial transition planning/care coordination assessment. RN LUCY introduced self and role at [facility], pt voices understanding and consents to assessment. Pt is A/O x4 and answers all questions appropriately at this time. Pt lying in bed in no distress. Care providers, pharmacy, and demographics verified/updated. Admitting Dx: Lt ORIF clavicle PCP:Jon Specialists: christiano Suazo Pharmacy: [facility] Insurance: [facility] Prescription Benefit: yes LNOK: Sandy Carpenter Living Arrangements: Pt lives with sig other, her dtr and dtr's boyfriend. Pt reports he is I in ADL's and denies concerns at home. Transportation: Pt drives self and denies concerns with transportation. Pt family to transport him until he is able to drive again. DME/HHC/SNF: Pt has no DME in the home nor uses AD. Pt denies hx of HHC or SNF stays. Pt states no concerns with going home at time of dc. Pt states no further concerns/needs. CM to follow. Advised pt to ask CM if any further question/concerns/needs arise, voices understanding. Pt Goal: Home Plan: Home
--- NOTE | 2022-09-22 11:48 | PHA.DC.MC ---
Pharmacy Service has performed discharge medication reconciliation and counseling for this patient. The patient was counseled on the following discharge medications and changes in medications for homegoing were reviewed. 1. PERCOCET The Reason for Use, instructions for use, and potential side effects were reviewed for all new medications. The patient's questions regarding all of their medications were answered. The patient was able to verbally demonstrate an understanding of their discharge medications. Home Medications oxycodone-acetaminophen 5 mg-325 mg tablet (Percocet) 1 tab PO Q4H PRN pain 5 days #14 tabs 09/21/22 folic acid 1 mg tablet 1 mg PO BREAKFAST #30 tabs 09/22/22 thiamine HCl (vitamin B1) 100 mg tablet (Vitamin B-1) 100 mg PO BREAKFAST #30 tabs 09/22/22
[2022-09-22] MEDS: Potassium Chloride Oral Tablet 20 MEQ 40 MEQ PO ×2 (12:37→14:07)
== END 2022-09-22 14:32 | disposition home or self-care (01) ==
LOC: MS3 19:30
PROVIDERS: Anesthesiology; Admitting Provider Orthopaedic Surgery Sports Medicine; PCP Family Medicine; Referring Provider Orthopaedic Surgery Sports Medicine; Visit Provider Internal Medicine
PROC: (CPT 23515; principal; 2022-09-21 12:10)
DX: S42.002A Fracture of unspecified part of left clavicle, initial encounter for closed fracture (principal); F10.10 Alcohol abuse, uncomplicated; I10 Essential (primary) hypertension; R09.02 Hypoxemia; H91.93 Unspecified hearing loss, bilateral; V99.XXXA Unspecified transport accident, initial encounter; Y92.410 Unspecified street and highway as the place of occurrence of the external cause
CPT/HCPCS: 23515; 00450; 64415; 36415; 71045; 73000; 76000; 80048; 80076; 85027; 85610; 85730; 93005; 94668; 94762; 96374; 96376; 99252; C1713; J7120; A4216; G0463; J2405

== ENCOUNTER 2023-04-16 11:46 | Inpatient (IN) | payer SELFPAY ==
[2023-04-16] VITALS (20 sets, daily range): BP systolic 127–166; BP diastolic 83–106; PULSE 107–145; RESP 18–27; TEMP 36.6–37.1; O2SAT 90–97; BMI 25.3; BMI 23.0
--- NOTE | 2023-04-16 12:00 | EKG12_ITS ---
Test Reason : Blood Pressure : / mmHG Vent. Rate : 125 BPM Atrial Rate : 125 BPM P-R Int : 136 ms QRS Dur : 098 ms QT Int : 314 ms P-R-T Axes : 030 057 063 degrees QTc Int : 453 ms Poor data quality, interpretation may be adversely affected Sinus tachycardia Nonspecific ST and T wave abnormality Abnormal ECG Confirmed by PAIGE MCGOVERN, MAURICE ([id number]), index editor MIMI RIVERA ([id number]) on 04/24/2023 7:06:23 AM Referred By: Confirmed By:CAROL GIBSON MD
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
[2023-04-16] MEDS: LORazepam 2 MG/ML Syringe 1 MG IV ×2 (12:06→12:45)
--- NOTE | 2023-04-16 12:07 | CT_ITS ---
INDICATION: seizure activity EXAMINATION: CT BRAIN - CT Head or Brain W/O Contrast Injection TECHNIQUE: Multiple axial images were obtained of the head without intravenous contrast. A radiation dose optimization technique was used for this scan. IV Contrast dosage and agent: None. RADIATION DOSAGE (If Supplied By Facility): CTDIvol = ( 44.99 ) mGy, DLP = ( 796.11 ) mGycm COMPARISON: Prior study dated: 02/03/2020 FINDINGS: BRAIN PARENCHYMA: No intra- or extra-axial hemorrhage. No evidence of acute infarct. No intracranial mass or mass effect. There is preservation of the cook/white matter interface. Posterior fossa structures are unremarkable. CSF SPACES: Appropriate for age. No hydrocephalus. Basal cisterns are patent. CALVARIUM, SKULL BASE, PARANASAL SINUSES AND MASTOID AIR CELLS: Clear. No discrete lytic or blastic abnormalities. ORBITS: Both globes, extraocular muscles, optic nerves and retrobulbar fat appear unremarkable. CT/Brain/Head without Contrast IMPRESSION: No acute intracranial process. Electronically Signed: Cody Garcia MD at 12:37 EST ,
[2023-04-16 12:13] LABS: Absolute Lymphocyte Count 2.57 X10^3/uL (0.83-4.51); Absolute Neutrophil Count 2.7 X10^3/uL (2.0-7.7); Basophil# 0.08 X10^3/uL; Basophil% 1.2 % (0-1); Eosinophil# 0.08 X10^3/uL; Eosinophils% 1.2 % (0-5); Hematocrit 48.8 % (40-54); Hemoglobin 15.9 g/dL (13.0-16.5); Lymphocyte # 2.57 X10^3/ul (0.83-4.51); Lymphocyte % 39.9 % (19-41); Mean Corp Hgb Conc 32.6 g/dL (32-36); Mean Corpuscular Hgb 31.9 pg (27.0-32.0); Mean Corpuscular Volume 97.8 fL (80-94); Mean Platelet Vol. 9.9 fl (6.2-12.0); Monocyte# 0.99 X10^3/uL; Monocyte% 15.4 % (0-10); NRBC Flagged by Analyzer 0 % (0-5); Neutrophil # 2.67 X10^3/uL (2.7-7.7); Neutrophil % 41.5 % (47-70); Platelet Count 100 K/mm3 (150-450); RBC Distribution Width CV 11.9 % (11.6-14.6); RBC Distribution Width SD 42.7 fl (35.1-43.9); Red Blood Count 4.99 M/mm3 (4.6-6.2); White Blood Count 6.4 K/mm3 (4.4-11.0)
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
[2023-04-16 12:23] LABS: Alcohol, Blood (Medical)-Serum < 3.0 mg/dL
[2023-04-16 12:37] LABS: AST(SGOT) 120 U/L (15-37); Alanine Aminotransfer ALT/SGPT 85 U/L (16-61); Albumin, Serum 4.8 g/dL (3.2-5.0); Alkaline Phosphatase 116 U/L (45-117); Anion Gap 27 (5-15); BUN 4 mg/dL (7-18); BUN/Creat Ratio 3.5 RATIO (10-20); Calcium,Total 9.4 mg/dL (8.5-10.1); Chloride 96 mmol/L (98-107); Creatinine, Serum 1.15 mg/dL (0.70-1.30); EST Glomerular Filtration Rate 71 mL/min (>60); Est Glom Filt Rate - Afr Amer 86 mL/min (>60); Estimated Creatinine Clearance 71.05 ml/min; Globulin 4.6 g/dL (2.2-4.2); Glucose 170 mg/dL (74-106); Protein, Total 9.4 g/dL (6.4-8.2); Sodium Level 137 mmol/L (136-145); Thyroid Stim Hormone (TSH) 3.12 uIU/mL (0.358-3.74); Troponin-I HS 8 pg/mL (3.0-78.0)
[2023-04-16] MEDS: 0.9% Normal Saline (1000mL) 1,000 ML 999 ML IV (12:45)
--- NOTE | 2023-04-16 13:01 | NURSING ---
DR SANKET EL
--- NOTE | 2023-04-16 13:04 | NURSING ---
ICU KITTOE ALCOHOL WITHDRAWAL SEIZURE
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
[2023-04-16 13:29] LABS: Blood Gas Specimen Type VEN; O2 Delivery Device Room Air; SITE Not entered; VBG BASE EXCESS -7 mmol/L (-1.0-3.5); VBG Bicarbonate 18 mmol/L (22-26); VBG PO2 36 mmHg (25-40); VBG SO2 71 % (50-70); VBG TCO2 19 mmol/L (23-33); VBG pCO2 28.1 mmHg (41-51); VBG pH 7.41 (7.32-7.42)
[2023-04-16] MEDS: Phenobarbital 32.4 MG Tablet 97.2 MG PO ×3 (14:33→22:03)
[2023-04-16] MEDS: KCl 20MEQ in D5NS 20 MEQ/1,000 ML IV.SOLN. 150 MEQ IV ×2 (14:43→21:24)
[2023-04-16 15:49] LABS: Amphetamine Urine VISTA NEGATIVE (<1000 ng/mL); Barbiturate Urine VISTA NEGATIVE (< 200 ng/mL); Benzodiazepine Urine VISTA NEGATIVE (< 200 ng/mL); Cocaine Urine VISTA NEGATIVE (< 300 ng/mL); Ecstacy Urine VISTA NEGATIVE (< 500 ng/mL); Methadone Urine VISTA NEGATIVE (< 300 ng/mL); PCP Urine VISTA NEGATIVE (< 25 ng/mL); THC Urine VISTA NEGATIVE (< 50 ng/mL); Vista UDS pH Range 6
[2023-04-16] MEDS: Gabapentin 300 MG Capsule PO (22:04)
[2023-04-17] VITALS (12 sets, daily range): BP systolic 127–148; BP diastolic 88–99; PULSE 92–120; RESP 14–17; TEMP 36.6–37.1; O2SAT 94–98; BMI 22.8
[2023-04-17] MEDS: KCl 20MEQ in D5NS 20 MEQ/1,000 ML IV.SOLN. 150 MEQ IV (03:33)
[2023-04-17] MEDS: Phenobarbital 32.4 MG Tablet 97.2 MG PO ×2 (03:33→07:29)
[2023-04-17 04:18] LABS: Absolute Lymphocyte Count 0.58 X10^3/uL (0.83-4.51); Absolute Neutrophil Count 5.2 X10^3/uL (2.0-7.7); Basophil# 0.03 X10^3/uL; Basophil% 0.5 % (0-1); Eosinophil# 0.01 X10^3/uL; Eosinophils% 0.2 % (0-5); Hematocrit 39.3 % (40-54); Hemoglobin 13.2 g/dL (13.0-16.5); Lymphocyte # 0.58 X10^3/ul (0.83-4.51); Mean Corp Hgb Conc 33.6 g/dL (32-36); Mean Corpuscular Hgb 32.1 pg (27.0-32.0); Mean Corpuscular Volume 95.6 fL (80-94); Mean Platelet Vol. 10.6 fl (6.2-12.0); Monocyte# 0.56 X10^3/uL; Monocyte% 8.7 % (0-10); NRBC Flagged by Analyzer 0 % (0-5); Neutrophil # 5.22 X10^3/uL (2.7-7.7); Neutrophil % 81.1 % (47-70); POSITIVE COUNT YES; POSITIVE DIFFERENTIAL YES; Platelet Count 57 K/mm3 (150-450); RBC Distribution Width CV 11.9 % (11.6-14.6); RBC Distribution Width SD 41.3 fl (35.1-43.9); Red Blood Count 4.11 M/mm3 (4.6-6.2); White Blood Count 6.4 K/mm3 (4.4-11.0)
[2023-04-17 04:21] LABS: International Normalized Ratio 1.2; Prothrombin Time (Protime)PT. 15.2 SECONDS (11.7-14.9)
[2023-04-17 04:36] LABS: Differential Indicated SCAN CRITERIA MET
[2023-04-17 04:47] LABS: AST(SGOT) 70 U/L (15-37); Alanine Aminotransfer ALT/SGPT 58 U/L (16-61); Albumin, Serum 3.4 g/dL (3.2-5.0); Alkaline Phosphatase 80 U/L (45-117); Anion Gap 7 (5-15); BUN 3 mg/dL (7-18); BUN/Creat Ratio 4.5 RATIO (10-20); Calcium,Total 8.2 mg/dL (8.5-10.1); Chloride 105 mmol/L (98-107); Creatinine, Serum 0.67 mg/dL (0.70-1.30); Differential Comment SCANNED; EST Glomerular Filtration Rate 133 mL/min (>60); Est Glom Filt Rate - Afr Amer 161 mL/min (>60); Estimated Creatinine Clearance 121.95 ml/min; Globulin 3.8 g/dL (2.2-4.2); Glucose 132 mg/dL (74-106); Phosphorus 2.4 mg/dL (2.5-4.9); Platelet Estimate MKD DEC (ADEQ); Platelet Morphology LARGE; Potassium 3.7 mmol/L (3.5-5.1); Protein, Total 7.2 g/dL (6.4-8.2); Sodium Level 137 mmol/L (136-145)
--- NOTE | 2023-04-17 05:55 | MRI_ITS ---
STUDY: MRI BRAIN WITH AND WITHOUT CONTRAST REASON FOR EXAM: Male, 53 years old. SEIZURE TECHNIQUE: Standardized multiplanar fat and water weighted pulse sequences were obtained. 13ML IV CLARISCAN was administered for the contrast portion of the examination. COMPARISON: Head CT dated April 16, 2023 FINDINGS: Normal size of the ventricles and extra-axial spaces for the patient''s age. There are a limited number of small white matter hyperintensities, distributed throughout the deep white matter tracts of the cerebral hemispheres, consistent with mild chronic white matter ischemic changes. There is no evidence for recent intracranial ischemia or other cause of cytotoxic edema on diffusion weighted imaging (DWI). Normal T2* images of the brain without demonstrated susceptibility artifact. There is no demonstrated hemosiderin stain. There are no demyelinating plagues of the supratentorial brain, brainstem or cerebellum. There are no findings suspicious for multiple sclerosis (MS). Normal bilateral basal ganglia. Normal thalami. There is no extra-axial fluid accumulation. Normal flow voids within the major intracranial circulation suggesting patency by spin echo criteria. Normal venous enhancement. There is no enhancing intra-axial or extra-axial abnormality. Normal sella turcica, pituitary gland, infundibular stalk, optic chiasm and hypothalamus. Normal tectal plate and pineal gland. Normal midbrain, marcel and medulla. Normal cerebellum. Normal basal cisterns. Normal bilateral temporal bones. Normal bilateral internal auditory canals. No demonstrated orbital abnormality, within the constraints of a routine brain study. Normal visualized paranasal sinuses. Normal calvarium and skull base. Normal visualized soft tissue structures. Normal visualized upper cervical spine. MRI/Brain W/WO Contrast IMPRESSION: 1. Minimal chronic ischemic changes of the brain, as described above. Electronically Signed: Phani Leyva MD at 15:35 EST ,
[2023-04-17] MEDS: Thiamine Hydrochloride 100 MG Tablet PO (07:27)
[2023-04-17] MEDS: Folic Acid 1 MG Tablet PO (07:27)
--- NOTE | 2023-04-17 16:44 | DCINST_ITS ---
Discharge Instructions Diet Discharge Diet: No restrictions Activity Discharge Activity: Return to Normal Activity and May Not Drive (Until Dr. Teresa gives you the results of your EEG-he will phone these results to you) Weight Bearing Status: Full weight bearing Follow Up Care Test Results: Test results from this visit will be discussed in further detail at your follow- up appointment, if applicable. Discharge Plan Admission Admit Date/Time: 04/16/23 13:03 Primary Reason for Your Visit: Alcohol withdrawal seizure Attending Provider: Maciej Teresa Primary Care Provider: Care Physician,No Primary Consulting Providers: Anish Pandya; Cee Murillo Instructions Additional Instructions / Restrictions: Avoid Ibuprofen or Aleve due to your low platelet count Discharge Orders/Prescriptions Prescriptions: Discontinued oxycodone-acetaminophen [Percocet] 5-325 mg tablet 1 tab PO Q4H MDD 6 PRN (Reason: pain) 5 Days Qty: 14 0RF thiamine HCl (vitamin B1) [Vitamin B-1] 100 mg Tablet 100 mg PO BREAKFAST Qty: 30 2RF folic acid 1 mg Tablet 1 mg PO BREAKFAST Qty: 30 2RF Referrals / Follow Up: Salazar Webb MD [Med Staff - Sales Administration Specialist] - See Referral Note (in two weeks, you need your platelet count and liver enzymes repeated) Care Physician,No Primary [Primary Care Provider] - Disposition Disposition (needs filled in before D/C Order can be placed): Home, Self Care
--- NOTE | 2023-04-17 17:04 | DS.PCM_ITS ---
Providers Date of Admission: 04/16/23 Date of Discharge: 04/17/23 Primary Care Physician: Melissa Primary Care Phys Consultations 04/17/23 10:19 Consult: Addiction Medicine Routine Consulting Provider: Cee Murillo Reason for Consult: alcoholism EMERGENT Consult: No MD Notified: Yes Date Notified: 04/17/23 Time Notified: 10:19 Method of Notification: Verbal Reason For Visit: ALCOHOL WITHDRAWAL SEIZURE Diagnosis Discharge Diagnosis (1) Alcohol withdrawal seizure: Status: Acute Code(s): F10.939 - Alcohol use, unspecified with withdrawal, unspecified; R56.9 - Unspecified convulsions Plan Final diagnosis: #1 alcohol withdrawal seizure #2 hypokalemia #3 elevated liver enzymes secondary to alcoholism Alcoholic hepatitis was ruled out, acute alcohol withdrawal was ruled out Hospital Course Operations None Procedures None Summary of Care Provided Minutes Spent on Discharge: 32 Hospital Course: This 53-year-old white male was seen in the emergency room at [facility] after sustaining a witnessed seizure at home, the squad was called and patient was having generalized tonic-clonic seizures which stopped spontaneously. Patient stated that his last drink was several days ago, he has passed a history of alcohol withdrawal related seizures in the past. Work-up in the emergency room included a brain CT which was unremarkable, patient's liver enzymes are elevated, potassium was slightly low. Patient was admitted to ICU, he was placed on phenobarbital, given potassium replacement and observed. Patient underwent an EEG which was unremarkable, patient's MRI of the brain was also unremarkable. I discussed outpatient detox services with the patient and he agreed to obtain information from [facility] which was provided. There were no seizures during his hospital stay and he had no evidence of acute alcohol withdrawal. On 04/17/2023, patient was seen and examined: On examination he appeared in good health and spirits. Vital signs as documented. Skin warm and dry and without overt rashes. Neck without JVD, neck was supple, trachea midline, thyroid was normal. Lungs clear bilaterally, normal air movement was noted. Heart exam notable for regular rhythm, normal sounds and absence of murmurs, rubs or gallops. Abdomen unremarkable and without evidence of organomegaly, masses, or abdominal aortic enlargement. Bowel sounds are present, abdomen is not dist ended. Extremities nonedematous, no cyanosis was noted, no clubbing was noted. Neuro: Cranial nerves II through XII are grossly intact, no focal motor deficits were noted, sensation to light touch and pinprick intact, motor exam 5/5 throughout. Psych: Patient is alert and oriented x3, he does not appear anxious or depressed, he does not appear agitated. Patient was discharged home in stable condition on 04/17/2023 Weight / BMI Weight Weight: 66 kg Body Mass Index (BMI) 22.8 ABG / Lab / Microbiology Data 04/17/23 04:00 04/17/23 04:00 Laboratory: Laboratory Results - last 24 hr 04/17/23 04:00: WBC 6.4, RBC 4.11 L, Hgb 13.2, Hct 39.3 L, MCV 95.6 H, MCH 32.1 H, MCHC 33.6, RDW Std Deviation 41.3, RDW Coeff of Jag 11.9, Plt Count 57 L, MPV 10.6, Immature Gran % (Auto) 0.500, Neut % (Auto) 81.1 H, Lymph % (Auto) 9.0 L, Bay % (Auto) 8.7, Eos % (Auto) 0.2, Baso % (Auto) 0.5, Absolute Neuts (auto) 5.2, Absolute Lymphs (auto) 0.58 L, Nucleated RBC % 0, Differential Comment SCANNED, Platelet Estimate MKD DEC, Plt Morphology Comment LARGE, PT 15.2 H, INR 1.2, Sodium 137, Potassium 3.7, Chloride 105, Carbon Dioxide 25.0, Anion Gap 7, BUN 3 L, Creatinine 0.67 L, Estim Creat Clear Calc 121.95, Est GFR (MDRD) Af Amer 161, Est GFR (MDRD) Non-Af 133, BUN/Creatinine Ratio 4.5 L, Glucose 132 H, Calcium 8.2 L, Phosphorus 2.4 L, Magnesium 2.0, Total Bilirubin 3.20 H, Direct Bilirubin 0.70 H, AST 70 H, ALT 58, Alkaline Phosphatase 80, Total Protein 7.2, Albumin 3.4, Globulin 3.8 Radiography Diagnostic Testing: Radiology Impression Brain MRI 04/17/23 05:55 IMPRESSION: 1. Minimal chronic ischemic changes of the brain, as described above. Electronically Signed: Phani Leyva MD at 15:35 EST , D/C Instructions Discharge Diet: No restrictions Weight Bearing Status: Full weight bearing Meaningful Use Info Meaningful Use Diagnoses (Choose all that apply): None applicable Discharge Plan Admission Admit Date/Time: 04/16/23 13:03 Primary Reason for Your Visit: Alcohol withdrawal seizure Attending Provider: Maciej Teresa Primary Care Provider: Care Physician,No Primary Consulting Providers: Anish Pandya; Cee Murillo Instructions Additional Instructions / Restrictions: Avoid Ibuprofen or Aleve due to your low platelet count Discharge Orders/Prescriptions Prescriptions: Discontinued oxycodone-acetaminophen [Percocet] 5-325 mg tablet 1 tab PO Q4H MDD 6 PRN (Reason: pain) 5 Days Qty: 14 0RF thiamine HCl (vitamin B1) [Vitamin B-1] 100 mg Tablet 100 mg PO BREAKFAST Qty: 30 2RF folic acid 1 mg Tablet 1 mg PO BREAKFAST Qty: 30 2RF Referrals / Follow Up: Salazar Webb MD [Med Staff - Coordinate Measuring Machine Technician] - See Referral Note (in two weeks, you need your platelet count and liver enzymes repeated) Care Physician,No Primary [Primary Care Provider] - Disposition Disposition (needs filled in before D/C Order can be placed): Home, Self Care Charges/Coding Visit Charges Inpatient E&M: [id number] Disch Hosp >30min
== END 2023-04-17 17:35 | disposition home or self-care (01) | DRG 897 ==
LOC: ED 12:30 → ICU 13:24
PROVIDERS: Admitting Provider Internal Medicine; Emergency Provider Emergency Medicine; Visit Provider Internal Medicine
DX: F10.20 Alcohol dependence, uncomplicated (principal); D69.6 Thrombocytopenia, unspecified; R56.9 Unspecified convulsions; I10 Essential (primary) hypertension; E87.6 Hypokalemia; R07.9 Chest pain, unspecified; R74.01 Elevation of levels of liver transaminase levels
CPT/HCPCS: 70450; 70553; 71045; 80048; 80053; 80076; 80307; 82077; 82803; 83735; 84100; 84443; 84484; 85025; 85610; 93005; 95819; 99285; A9575; J7030; A4216